=== PATIENT | female | born 1990 | race Two or more races ===

== ENCOUNTER 2020-06-10 09:35 | Outpatient (REF) | payer OTHER, SELFPAY ==
[2020-06-11 12:43] LABS: BV Int Neg Control Negative (Negative); BV Int Pos Control Positive (Positive)
[2020-06-11 19:17] LABS: C. trachomatis RNA TMA NOT DETECTED (NOT DETECTED); N. gonorrhoeae RNA TMA NOT DETECTED (NOT DETECTED)
[2020-07-15 12:19] LABS: Thin Prep Source Cervix
[2020-07-20 14:26] LABS: HPV mRNA E6/E7 Not Detected
== END 2020-06-10 09:36 | disposition home or self-care (01) ==
LOC: HO.LAB 09:35
PROVIDERS: Visit Provider Advanced Practice Midwife
DX: Z01.419 Encounter for gynecological examination (general) (routine) without abnormal findings (principal); R10.2 Pelvic and perineal pain
CPT/HCPCS: 36415; 81003; 87480; 87491; 87510; 87591; 87624; 87625; 87660; 88141; 88142

== ENCOUNTER → 2020-10-15 08:58 | Outpatient (BNVA) | payer OTHER, SELFPAY | PROVIDERS: Visit Provider Advanced Practice Midwife | DX: Z30.41 Encounter for surveillance of contraceptive pills (principal) | CPT/HCPCS: 99212 ==

== ENCOUNTER → 2021-04-27 09:25 | Outpatient (BNVA) | payer OTHER, SELFPAY | PROVIDERS: Visit Provider Advanced Practice Midwife ==

== ENCOUNTER → 2021-06-22 08:35 | Outpatient (BNVA) | payer OTHER, SELFPAY | PROVIDERS: Visit Provider Advanced Practice Midwife ==

== ENCOUNTER 2021-07-07 10:38 | Outpatient (REF) | payer OTHER, SELFPAY ==
[2021-07-07 17:01] LABS: CT PCR NOT DETECTED (Not Detect.); NG PCR NOT DETECTED (Not Detect.)
[2021-07-08 11:10] LABS: BV Int Neg Control Negative (Negative); BV Int Pos Control Positive (Positive)
[2021-07-09 09:51] LABS: HPV mRNA E6/E7 rflx Not Detected (Not Detected)
== END 2021-07-07 10:39 | disposition home or self-care (01) ==
LOC: HO.LAB 10:38
PROVIDERS: Visit Provider Advanced Practice Midwife
DX: Z01.411 Encounter for gynecological examination (general) (routine) with abnormal findings (principal); Z11.51 Encounter for screening for human papillomavirus (HPV); Z20.2 Contact with and (suspected) exposure to infections with a predominantly sexual mode of transmission; R10.2 Pelvic and perineal pain; Z98.891 History of uterine scar from previous surgery
CPT/HCPCS: 87480; 87491; 87510; 87591; 87624; 87660; 88142

== ENCOUNTER 2024-07-15 09:17 | Outpatient (AMB) | payer OTHER, SELFPAY ==
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
[2024-07-15 09:29] VITALS: BP 118/78; PULSE 84; O2SAT 98; BMI 40.2
--- OUTSIDE RECORDS SUMMARY | 2024-07-15 10:00 | XMS_ITS | Encounter Summary ---
Author Organization [facility] Address [address] [place] [address] Care Team Providers Care Catering Director Name Role Phone Raciel Lainez MD Primary Care Provider [phone] Reason for Visit * Reason Onset Date Comments Medication Problem 06/26/2024 Encounter Details Date Type Department Care Team (Late st Contact Info) Description 06/26/2024 Telephone Internal Medicine - [address] [phone] Raciel Lainez MD [address] [place] [phone] Medication Problem Social History Tobacco Use Types Packs/Day Years Used Date Smoking Tobacco: Never Smokeless Tobacco: Never Alcohol Use Standard Drinks/Week Comments No 0 (1 standard drink = 0.6 oz pur e alcohol) Estimated Date of Delivery Comme nts Yes 12/20/2024 Based on last me nstrual period of 03/15/2024 (Exact Date) Sex and Gender Information Value Date Recorded Sex Assigned at Female 05/06/2024 9:23 PM EST Legal Sex Female 2:17 AM EST Gender Identity Female 05/06/2024 9:23 PM EST Sexual Orientation Straight 05/06/2024 9: 23 PM EST documented as of this encounter Progress Notes * Lovely Ivey - 06/26/2024 1:22 PM EST Medication Problem: What is the name of the medication patient is having a problem with?: sodium chloride (OCEAN) 0.65 % nasal spray What is the problem?: pt states this med is not covered, requesting an alternative Who is calling about the problem? : The patient Who prescribed this medication for the patient? Ariadna De Oliveira Who is patients PCP?: Raciel Lainez MD [place] / Plan[place] / Product Type: *No Product type* / documented in this encounter Plan of Treatment Upcoming Encounters Date Type Department Care Team (Late st Contact Info) Description 07/16/2024 1:30 PM EST Office Visit Internal Medicine - [address] [phone] Ariadna Weaver, TRANSITION TEACHER [address] [place] [address] 08/08/2024 11:30 AM EDT Routine Obstetrics and Gynecology - [address] [phone] Maria G Bain [address] [address] 08/13/2024 10:00 AM EDT Ancillary Procedure Maternal Medicine [address] [phone] 09/05/2024 1:15 PM EDT [facility] [phone] [place] [address] [address] 10/03/2024 1:15 PM EDT Routine Obstetrics and Gynecology - [address] [phone] [place] [address] [address] documented as of this encounter Visit Diagnoses Not on filedocumented in this encounter Additional Health Concerns Infection Onset Date Last Indicated Resolved Time Respiratory Rule-Out 07/11/2024 07/11/2024 025 10:17 PM EST COVID-19 Rule-Out 07/11/2024 07/11/2024 07/11/2024 10:17 PM EST Influenza 07/11/2024 07/11/2024 documented as of this encounter Care Teams Catering Director Relationship Specialty Start Date End Date Raciel Lainez MD [address] [place] [phone] PCP - General Internal Medicine 04/22/24 documented as of this encounter
--- OUTSIDE RECORDS SUMMARY | 2024-07-15 10:00 | XMS_ITS | Encounter Summary ---
Author Organization [facility] Address [address] [place] [address] Care Team Providers Care Claim Administrator Name Role Phone Raciel Lainez MD Primary Care Provider [phone] Reason for Visit * Reason Onset Date Comments Prior Authorization 07/04/2024 Encounter Details Date Type Department Care Team (Late st Contact Info) Description 07/04/2024 [facility] [address] [place] [phone] Raciel Lainez MD [address] [place] [phone] Prior Authorization Social History Tobacco Use Types Packs/Day Years [...] encounter Progress Notes * Lovely Ivey - 07/04/2024 8:38 AM EST Prior Authorization for Medication-do not complete and send this encounter unless you have the fax from the pharmacy. Is this a Cover My Meds request: Yes -- Don Code [id number] Name of Medication ciprofloxacin-dexAMETHasone (CIPRODEX) otic suspension Dose of Medication What is the RX # from the faxed refill? How does patient take this med? Administer 4 drops into each ear 2 (two) times a day. What Pharmacy did the fax come from: [facility] fax #: : [phone] [employer] Information from fax: What Prescription Plan does the patient have? BIN/PCN if applicable: Cardholder ID: Person Code: Relationship Code: Help desk phone: documented in this encounter Plan of Treatment Upcoming Encounters Date Type Department Care Team (Late st Contact Info) Description 07/16/2024 1:30 PM EST Office Visit Internal Medicine - [address] [phone] Ariadna Weaver, WANDY [address] [place] [address] 08/08/2024 11:30 AM EDT Routine Obstetrics and Gynecology - [address] [phone] Maria G Bain[address] 08/13/2024 10:00 AM EDT Ancillary Procedure Maternal Medicine - [address] [phone] 09/05/2024 1:15 PM EDT Routine Obstetrics and Gynecology - [address] [phone] Soco Mayberry, [address] [address] 10/03/2024 1:15 PM EDT Routine Obstetrics and Gynecology - [address] [phone] Soco Mayberry CNM [address] [place] [address] documented as of this encounter Visit Diagnoses Not on filedocumented in this encounter Additional Health Concerns Infection Onset Date Last Indicated Resolved Time Respiratory Rule-Out 07/11/2024 07/11/2024 025 10:17 PM EST COVID-19 Rule-Out 07/11/2024 07/11/2024 07/11/2024 10:17 PM EST Influenza 07/11/2024 07/11/2024 documented as of this encounter Care Teams Claim Administrator Relationship Specialty Start Date End Date Raciel Lainez MD [address] [place] [phone] PCP - General Internal Medicine 04/22/24 documented as of this encounter
--- OUTSIDE RECORDS SUMMARY | 2024-07-15 10:00 | XMS_ITS | Encounter Summary ---
Author Organization [facility] Address [address] [place] [address] Care Team Providers Care Chopped Strand Operator Name Role Phone Raciel Lainez MD Primary Care Provider [phone] Reason for Referral * Consultation (Routine) - Pending Review Specialty Diagnoses / Procedures Referred By Kevin aguilar Referred To Contact Behavioral Health Diagnoses Adjustment disorder with mixed anxiety and depressed mood Ariadna Weaver NP [address] [place] [address] Phone: tel: fax: Referral ID Status Reason Start Date Expiration Date Visits Requested Visits Authorized [id number] Pending Review Specialty Services Required 06/27/2024 06/27/2025 1 1 * Consultation (Routine) - Pending Review Specialty Diagnoses / Procedures Referred By Kevin aguilar Referred To Contact Otolaryngology Diagnoses Pressure sensation in ear, bilateral Ariadna Weaver NP [address] [place] [address] Phone: tel: fax: [facility] [address] [place] [address] Phone: tel: fax: Referral ID Status Reason Start Date Expiration Date Visits Requested Visits Authorized [id number] Pending Review Specialty Services Required 06/27/2024 06/27/2025 1 1 Reason for Visit * Reason Comments Ear Problem F/u Encounter Details Date Type Department Care Team (Late st Contact Info) Description 06/27/2024 9:30 AM EST Office Visit Internal Medicine - [address] [phone] Ariadna Weaver NP [address] [place] [phone] Pressure sensation in ear, bilateral (Primary Dx); Adjustment disorder with mixed anxiety and depressed mood Social History Tobacco Use Types Packs/Day Years Used Date Smoking Tobacco: Never Smokeless Tobacco: Never Tobacco Cessation:Counseling Given: Not Answered Alcohol Use Standard Drinks/Week Comments No 0 [...] PM EST documented as of this encounter Last Filed Vital Signs Vital Sign Reading Time Taken Comments Blood Pressure 113/69 06/27/2024 9:19 AM EST Pulse 106 06/27/2024 9:19 AM EST Temperature 36.9 ??C (98.4 ??F) 06/27/2024 9:19 AM ES T Respiratory Rate - - Oxygen Saturation - - Inhaled Oxygen Concentration - - Weight 103 kg (228 lb 1.6 oz) 06/27/2024 9:19 AM EST Height - - Body Mass Index 40.41 06/05/2024 3:00 PM EST documented in this encounter Progress Notes * Ariadna De Oliveira NP - 06/27/2024 9:30 AM EST Referral to ENT due to chronic pressure feelings in the ears. Letter for work written today due to unstable emotional status and not therapeutic yet with new med. Patient to visit [facility] walk in clinic. Follow up during the week of 25. * Ariadna De Oliveira NP - 06/27/2024 9:30 AM EST CHIEF COMPLAINT: Ear Problem (F/u) HPI: Gaby Horta is a 33 y.o. old female with PMH of PCOS, anxiety with depression, eczema, seasonal allergies and a high hemoglobin A1c: prediabetes at 5.7. Patient is 15 weeks and is following up with CHANGE MANAGEMENT LEAD here at the clinic. Ms. Emmanuel is here today for follow-up from last visit on June 19, 2024 at which time she had come in for continuous complaints of right-sided ear pain, headaches and dizziness. Today the headache and the dizziness symptoms are gone. However the ear pain is now more of a pressure feeling in both ears. The patient states she can hear her own heart, and it feels like an ocean. The symptoms are increased on the right side but also present on the left side. Patient denies any ear drainage, swelling or redness inside or outside her ear, visible to her. The patient denies pain fevers and chills. Patient started Lexapro on June 23, due to insurance not having approve the medication prior to that, per patient reports. Patient does not note any difference in her symptoms as of this visit. But does not report any side effects during this visit from the medication. The patient continues with a lot of anxiety, feeling very depressed. Some of the symptoms that the patient is experiencing's are excessive worry, hyperalertness, tension, and increased fear. The fear patient feels is that she may lose her job. 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 Patient continues using her nasal spray consistently with improvement noted. Follow-up on patient's eczema problem today, patient states her eczema is much improved with the cream and she continues to moisturize after showers and as needed during the day. Patient reinforced to continue moisturizing during the day, for the dry skin to completely go away. ROS: See HPI for pertinent positives Constitutional: no weakness fever/ sweats, or weight change HEENT: no acute vision changes, no ear pain but feels pressure on both ears no, sore throat, no nasal discharge. Respiratory: no shortness of breath, cough or wheezing Cardiovascular: no chest pain or palpitations, no orthopnea or edema GI: no nausea, vomiting or diarrhea; no rectal bleeding or dark stools MSK: no joint or muscle pain, swelling or impaired ROM Neuro: no acute headaches, dizziness, weakness. PHYSICAL EXAM: Visit Vitals BP 113/69 (BP Location: Right arm, Patient Position: Sitting, BP Cuff Size: Large adult) Pulse 106 Temp 36.9 ??C (98.4 ??F) Wt 103 kg (228 lb 1.6 oz) LMP 03/15/2024 (Exact Date) BMI 40.41 kg/m?? OB Status Smoking Status Never BSA 2.04 m?? APPEARANCE: Alert and in no acute distress EYES: PERRLA, conjunctiva and sclera normal. EARS: External ears normal. Canals clear. TMs normal. No tenderness or pain with examination or palpation around the ears. NOSE/SINUS: Nares normal. Septum midline. Mucosa normal. MOUTH/THROAT: No erythema or exudates, uvula midline NECK: Neck supple, no adenopathy HEART: RRR with normal S1 and S2, no murmurs, no gallops LUNG: Clear to auscultation bilaterally. Able to talk in full complete sentences NEURO: Alert and oriented x 3. Gait steady. SKIN: Skin color, texture, turgor normal. Improved dry patches on the antecubital spaces. Psych: +Anxiety, depression, hypervigilant, constant worrying about work. PAST MEDICAL HISTORY: Patient Active Problem List Diagnosis Adjustment disorder with mixed anxiety and depressed mood Flexural eczema History of epilepsy Family history of brain aneurysm History of PCOS Encounter for supervision of other normal , first trimester Iron deficiency anemia secondary to inadequate dietary iron intake Environmental and seasonal allergies Prediabetes ACTIVE MEDICATIONS: Outpatient Medications Marked as Taking for the 06/27/24 encounter (Office Visit) with Ariadna De Oliveira NP Medication Sig Dispense Refill acetaminophen (Tylenol Extra Strength) 500 mg tablet Take 2 tablets (1,000 mg total) by mouth every6 (six) hours if needed for mild pain for up to 10 days. 30 tablet 0 betamethasone dipropionate 0.05 % lotion Apply topically 2 (two) times a day if needed for irritation or rash. 60 mL 0 cetirizine (ZyrTEC) 10 mg tablet Take 1 tablet (10 mg total) by mouth 1 (one) time each day. 30 each 2 escitalopram (LEXAPRO) 10 mg tablet Take 1 tablet (10 mg total) by mouth 1 (one) time each day. 30 each 5 fluticasone (VERAMYST) 27.5 mcg/actuation nasal spray Administer 2 sprays into each nostril 1 (one)time each day. 10 g 5 vit,gian [id number] 27 mg iron- 1 mg tablet Take 1 tablet by mouth 1 (one) time each day. 30 each 12 sodium chloride (OCEAN) 0.65 % nasal spray Administer 1 spray into each nostril if needed for congestion. 15 mL 11 ALLERGIES: Allergies Allergen Reactions Animal Dander Wheezing and Burning Eyes Cat, Dog, hampster Other Hives methylisohiazolinone Shellfish Derived Hives IMPRESSION: 1. Pressure sensation in ear, bilateral 2. Adjustment disorder with mixed anxiety and depressed mood PLAN: Ear pain and pressure: referral to ENT placed during today's visit due to chronic ear pressure feelings and ears normal upon examination. Mental health: new referral made for behavioral health services. Patient is having increased stress, and she is at this time. Advised on community services like [facility] walk-in clinic. Address given to patient during today's visit and advised to seek further help. Patient to go to the emergency room for increased anxiety as needed. Eczema: Continue use of topical steroid sparingly unless there is a flareup of the eczema again. Atthis time continue using topical nonmedicated creams often during the day to keep the skin layer hydrated. Follow-up : will see patient again in the week of July 11 to determine patient wellbeing and hopefully by then the Lexapro will start showing some improvement in the patient's mental health. Otherwise, referrals have been placed to mental health providers and hopefully the patient can get in soon. It is important the patient gets mental health and emotional relief by seeking appropriate care from mental health professionals. Work letter given today during visit. Discussed red flags that would warrant further evaluation. Patient verbalized understanding and is in agreement with plan. ORDERS: Orders Placed This Encounter Procedures Ambulatory referral to ENT Ambulatory referral to Behavioral Health There are no discontinued medications. AMB REFERRAL TO ENT AMB REFERRAL TO BEHAVIORAL HEALTH Ariadna De Oliveira NP on 06/27/2024 documented in this encounter Plan of Treatment Upcoming Encounters Date Type Department Care Team (Late st Contact Info) Description 07/16/2024 1:30 PM EST Office Visit Internal Medicine - [address] [phone] Ariadna Weaver NP [address] [place] [address] 08/08/2024 11:30 AM EDT Routine Obstetrics and Gynecology - [address] [phone] Maria G Bain [address] 08/13/2024 10:00 AM EDT Ancillary Procedure Maternal Medicine - [address] [phone] 09/05/2024 1:15 PM EDT [facility] [phone] [place] [address] [address] 10/03/2024 1:15 PM EDT [facility] [address] [phone] [place] [address] [address] Scheduled Referrals Name Type Priority Associated Diagnoses Order Schedule Ambulatory referral to ENT Outpatient Referral Routine Pressure sensation in ear, bilateral 1 Occurrences starting 06/27/2024 until 06/27/2025 Ambulatory referral to Behavioral Health Outpatient Referral Routine Adjustment disorder with mixed anxiety and depressed mood 1 Occurrences starting 06/27/2024 until 06/27/2025 documented as of this encounter Visit Diagnoses Diagnosis Pressure sensation in ear, bilateral- Primary Adjustment disorder with mixed anxiety and depressed mood documented in this encounter Care Teams Chopped Strand Operator Relationship Specialty Start Date End Date Raciel Lainez MD [address] [place] [phone] PCP - General Internal Medicine 04/22/24 documented as of this encounter
--- OUTSIDE RECORDS SUMMARY | 2024-07-15 10:01 | XMS_ITS | Encounter Summary ---
Author Organization [facility] Address [address] [place] [address] Care Team Providers Care Production Artist Name Role Phone Raciel Lainez MD Primary Care Provider [phone] Reason for Referral * Imaging (Routine) - Pending Review Specialty Diagnoses / Procedures Referred By Contac t Referred To Contact Radiology Diagnoses Chronic ear pain, bilateral Procedures CT Head wo Contrast Ariadna Weaver NP [address] [place] [address] Phone: tel: fax: [address] Phone: tel: Referral ID Status Reason Start Date Expiration Date V isits Requested Visits Authorized [id number] Pending Review 07/11/2024 07/11/2025 1 1 Reason for Visit * Reason Comments Follow-up Ear pain not getting better Encounter Details Date Type Department Care Team (Late st Contact Info) Description 07/11/2024 9:30 AM EST Office Visit Internal Medicine - [address] [phone] Ariadna Weaver NP [address] [place] [id number] Chronic ear pain, bilateral (Primary Dx); Viral upper respiratory tract infection Social History Tobacco Use Types Packs/Day Years [...] Sign Reading Time Taken Comments Blood Pressure 113/74 07/11/2024 9:37 AM EST Pulse 66 07/11/2024 9:37 AM EST Temperature - - Respiratory Rate - - Oxygen Saturation - - Inhaled Oxygen Concentration - - Weight 103 kg (226 lb) 07/11/2024 9:37 AM EST Height 160 cm (5' 3 ) 07/11/2024 9:37 AM EST Body Mass Index 40.03 07/11/2024 9:37 AM EST documented in this encounter Ordered Prescriptions Prescription Sig Dispense Quantity Refills Last Filled Start Date End Date pseudoephedrine (Sudafed 12 Hour) 120 mg 12 hr tabletIndications: Chronic ear pain, bilateral Take 1 tablet (120 mg total) by mouth every 12 (twelve) hours. Do not crush, chew, or split. 60 each 11 07/11/2024 07/11/2025 documented in this encounter Progress Notes * Ariadna De Oliveira NP - 07/11/2024 9:30 AM EST My chart message sent with test results to patient. * Ariadna De Oliveira NP - 07/11/2024 9:30 AM EST CHIEF COMPLAINT: Follow-up (Ear pain not getting better /) HPI: Gaby Horta is a 33 y.o. old female with PMH of of PCOS, anxiety with depression, eczema, seasonal allergies and a high hemoglobin A1c: prediabetes at 5.7. Patient is 20 weeks and is following up with [employer] here at the clinic. Patient is here today for chronic ear pain bilaterally, worst on the right side. Not responding to ciprofloxacin-dexamethasone. Patient's ear bilaterally without infection in last visits. Will recheck today. Patient also here for nasal congestion x 2 days. No fevers/chills, also having a cough with sputum clear. ROS: See HPI for pertinent positives Constitutional: no weakness fever/ sweats, or weight change HEENT: no acute vision changes, sore throat. + bilateral ear pain, nasal congestion with discharge. Respiratory: no shortness of breath, or wheezing but has a cough Cardiovascular: no chest pain or palpitations, no orthopnea or edema GI: no nausea, vomiting or diarrhea; no rectal bleeding or dark stools MSK: no joint or muscle pain, swelling or impaired ROM Neuro: no acute headaches, dizziness, weakness. PHYSICAL EXAM: Visit Vitals BP 113/74 Pulse 66 Ht 1.6 m (63 ) Wt 103 kg (226 lb) LMP 03/15/2024 (Exact Date) BMI 40.03 kg/m?? OB Status Smoking Status Never BSA 2.04 m?? APPEARANCE: Alert and in no acute distress. Is congested EYES: PERRLA, conjunctiva and sclera normal. EARS: External ears normal. Canals clear. TMs normal. NOSE/SINUS: Nares normal. Septum midline. Mucosa normal. MOUTH/THROAT: No erythema or exudates, uvula midline NECK: Neck supple, no adenopathy HEART: RRR with normal S1 and S2, no murmurs, no gallops LUNG: Clear to auscultation bilaterally. Able to talk in full complete sentences NEURO: Alert and oriented x 3. CN II-XII intact. Gait steady. SKIN: Skin color, texture, turgor normal PAST MEDICAL HISTORY: Patient Active Problem List Diagnosis Adjustment disorder with mixed anxiety and depressed mood Flexural eczema History of epilepsy Family history of brain aneurysm History of PCOS Encounter for supervision of other normal , first trimester Iron deficiency anemia secondary to inadequate dietary iron intake Environmental and seasonal allergies Prediabetes Chronic ear pain, bilateral Viral upper respiratory tract infection ACTIVE MEDICATIONS: Outpatient Medications Marked as Taking for the 07/11/24 encounter (Office Visit) with Ariadna De Oliveira NP Medication Sig Dispense Refill betamethasone dipropionate 0.05 % lotion Apply topically 2 (two) times a day if needed for irritation or rash. 60 mL 0 cetirizine (ZyrTEC) 10 mg tablet Take 1 tablet (10 mg total) by mouth 1 (one) time each day. 30 each 2 ciprofloxacin-dexAMETHasone (CIPRODEX) otic suspension Administer 4 drops into each ear 2 (two) times a day. 7.5 mL 1 escitalopram (LEXAPRO) 10 mg tablet Take 1 tablet (10 mg total) by mouth 1 (one) time each day. 30 each 5 fluticasone (VERAMYST) 27.5 mcg/actuation nasal spray Administer 2 sprays into each nostril 1 (one)time each day. 10 g 5 ibuprofen (ADVIL,MOTRIN) 800 mg tablet Take 1 tablet (800 mg total) by mouth 3 (three) times a day if needed for mild pain (pain). 180 tablet 3 vit,gian [id number] 27 mg iron- 1 mg tablet Take 1 tablet by mouth 1 (one) time each day. 30 each 12 sodium chloride (OCEAN) 0.65 % nasal spray Administer 1 spray into each nostril if needed for congestion. 15 mL 11 ALLERGIES: Allergies Allergen Reactions Animal Dander Wheezing and Burning Eyes Cat, Dog, hampster Other Hives methylisohiazolinone Shellfish Derived Hives IMPRESSION: 1. Chronic ear pain, bilateral 2. Viral upper respiratory tract infection PLAN: Chronic ear pain: CT scan ordered today to rule out etiology due to ear pain without ear infection.Not responsive to antibiotic and steroid ear drops. Patient is still waiting on ENT appointment. Patient advised to call other ENT offices for earlier appointment. If any earlier availability by patient, please send referral to ENT over to that office. Patient is to call and let office know. URI: most likely viral as her 6 and 11 year old children have been sick with same symptoms at home.Ordered swab to rule out RSV, flu, covid. Also ordered plain sudafed due to congestion. Patient is ready to go back to work. Letter completed for resume work on 07.30.24, pending patient health status. Patient is to follow up in 2 weeks after going back to work to evaluate her mental, emotional health and medication effectiveness. Discussed red flags that would warrant further evaluation. Plan of care reviewed with patient and patient verbalized understanding and is in agreement with plan. ORDERS: Orders Placed This Encounter Procedures [id number], RSV, Influenza A and B qualitative RT-PCR CT Head wo Contrast There are no discontinued medications. CT HEAD WO CONTRAST Ariadna De Oliveira NP on 07/11/2024 documented in this encounter Plan of Treatment Upcoming Encounters Date Type Department Care Team (Late st Contact Info) Description 07/16/2024 1:30 PM EST Office Visit Internal Medicine - [address] [phone] Ariadna Weaver NP [address] [place] [phone] 08/08/2024 11:30 AM EDT Routine Obstetrics and Gynecology - [address] [phone] Maria G Bain [address] [address] 08/13/2024 10:00 AM EDT Ancillary Procedure Maternal Medicine [address] [phone] 09/05/2024 1:15 PM EDT Routine Obstetrics and Gynecology - [address] [phone] [place] [address] [address] 10/03/2024 1:15 PM EDT Routine Obstetrics and Gynecology - [address] [phone] [place] [address] [address] Scheduled Orders Name Type Priority Associated Diagnoses Orde r Schedule CT Head wo Contrast Imaging Today Chronic ear pain, bilateral Expected: 07/11/2024, Expires: 07/11/2025 documented as of this encounter Procedures Procedure Name Priority Date/Time Associated Diagnosis Comments [id number], RSV, FLU A AND B QUALITATIVE RT-PCR, LOCAL REFERENCE LAB Routine 07/11/2024 10:24 AM EST Viral upper respiratory tract infection documented in this encounter Results * (ABNORMAL) [id number], RSV, Influenza A and B qualitative RT-PCR (07/11/2024 10:24 AM EST) SARS COV-2 Not Detected Not Detected LAB MOLECULAR DIAGNOSTICS METHOD 07/11/2024 10:17 PM EST [facility] Influenza A PCR Not Detected Not Detected LAB MOLECULAR DIAGNOSTICS METHOD 07/11/2024 10:17 PM EST [facility] Influenza B PCR Detected(A) Not Detected LAB MOLECULAR DIAGNOSTICS METHOD 07/11/2024 10:17 PM EST [facility] RSV PCR Not Detected Not Detected LAB MOLECULAR DIAGNOSTICS METHOD 07/11/2024 10:17 PM [facility] Swab Nasopharyngeal structure / Unknown Non-blood Collection / Unknown 07/11/2024 10:24 AM EST 07/11/2024 10:25 AM EST us Ariadna De Oliveira NP LAB MICROBIOLOGY - GENERAL O RDERABLES Final Result [facility] [address] [place] [address], documented in this encounter Visit Diagnoses Diagnosis Chronic ear pain, bilateral- Primary Viral upper respiratory tract infection Acute upper respiratory infections of unspecified site documented in this encounter Additional Health Concerns Infection Onset Date Last Indicated Resolved Time Respiratory Rule-Out 07/11/2024 07/11/2024 025 10:17 PM EST COVID-19 Rule-Out 07/11/2024 07/11/2024 07/11/2024 10:17 PM EST documented as of this encounter Care Teams Production Artist Relationship Specialty Start Date End Date Raciel Lainez MD [address] [place] [address] PCP - General Internal Medicine 04/22/24 documented as of this encounter
--- OUTSIDE RECORDS SUMMARY | 2024-07-15 10:01 | XMS_ITS | Encounter Summary ---
Author Organization [facility] Address [address] [place] [address] Care Team Providers Care Child Therapist Name Role Phone Raciel Lainez MD Primary Care Provider [phone] Reason for Visit * Imaging (Routine) - Pending Review Specialty Diagnoses / Procedures Referred By Contac t Referred To Contact Radiology Diagnoses Encounter for supervision of other normal , first trimester Procedures US OB Less 14 Wks Nuchal Measurement Soco Mayberry, CNM [address] [place] [address] Phone: tel: fax: [address] Phone: tel: Referral ID Status Reason Start Date Expiration Date V isits Requested Visits Authorized [id number] Pending Review 06/05/2024 06/05/2025 1 1 Encounter Details Date Type Department Care Team (Latest Contact Info) Description 06/17/2024 1:00 PM EST Ancillary Procedure Maternal Medicine - [address] [phone] Encounter for supervision of other normal , first trimester Social History Tobacco Use Types Packs/Day Years [...] PM EST documented as of this encounter Plan of Treatment Upcoming Encounters Date Type Department Care Team (Late st Contact Info) Description 07/16/2024 1:30 PM EST Office Visit Internal Medicine - [address] [phone] Ariadna Weaver, W[place]Y [address] [place] [address] 08/08/2024 11:30 AM EDT Routine Obstetrics and Gynecology - [address] [phone] Maria G Bain [address] [address] 08/13/2024 10:00 AM EDT Ancillary Procedure Maternal Medicine - [address] [phone] 09/05/2024 1:15 PM EDT Routine Obstetrics and Gynecology - [address] [phone] Soco Mayberry [address] [address] 10/03/2024 1:15 PM EDT Routine Obstetrics and Gynecology - [address] [phone] Soco Mayberry [address] [address] documented as of this encounter Procedures Procedure Name Priority Date/Time Associated Diagnosis Comments US OB LESS 14 WKS NUCHAL MEASUREMENT Routine 06/17/2024 1:29 PM EST Encounter for supervision of other normal , first trimester US OB LESS 14 WKS SINGLE OR FIRST GESTATION Routine 06/17/2024 1:29 PM EST Encounter for supervision of other normal , first trimester documented in this encounter Results * US OB Less 14 Wks Single or First Gestation (06/17/2024 1:29 PM EST) Anatomical Region Laterality Modality Body Ultrasound 06/17/2024 1:03 PM EST Narrative 06/18/2024 4:38 PM EST OBSTETRICS REPORT ?(Signed Final 06/18/2024 04:38 pm) PATIENT INFO: ID #: ? [id number] ? : ??[birth year] (33 yrs)(F) Name: ? KELLIE STEWART ?Visit Date: 06/17/2024 01:03 pm PERFORMED BY: Attending: ?Clara Shelton MD Performed By: ? Parag Muñoz RDMS Referred By: ?Soco Mayberry CNM Ref. Address: ? [address] ? [place], [place] Location: ? [facility] SERVICE(S) PROVIDED: US Nuchal Translucency ?65366 US < 14 weeks Abdominal Ultrasound ?13920 INDICATIONS: Advanced Maternal Age in multigravida, first ?? O09.521 trimester Obesity complicating , 1st ?O99.211 trimester Morbid obesity ? E66.01 Encounter for screening for nuchal ?? Z36.82 translucency Encounter for screening for ?Z36.3 malformations 13 weeks gestation of ?Z3A.13 TECHNIQUE/SCAN QUALITY: Technique: ?? Transabdominal Scan ? Satisfactory Quality: OB HISTORY: : ?3 ? Term: ?? 2 Living: ? 2 VITAL SIGNS: Weight (lb) ?? Height ?BMI 234 ? 5'3 ?41.45 EVALUATION: Number Of Fetuses: ? 1 Preg. Location: ?Intrauterine Heart Rate(bpm): ?? 152 Cardiac Activity: ?Observed Presentation: ?Variable Placenta Location: ?Anterior Appearance: ?Grade 0 Cord Insertion: ?Visualized BIOMETRY: GESTATIONAL AGE: LMP: ? 13w 3d ?Date: ??03/15/24 ? PEEWEE: ?? 12/20/24 Best: ?13w 3d ?? Det. By: ??LMP ??(03/15/24) ?PEEWEE: ?? 12/20/24 1ST TRIMESTER GENETIC SONOGRAM SCREENING: CRL: ? 72.24 ??mm ? G.Age: ?? 13w 3d ? PEEWEE: ?? 12/20/24 Nuc Trans: ? 1.7 ??mm Nasal Bone: ? Suboptimal views STANDARD ANATOMY: Cranium: ?Normal appearance Choroid Plexus: ? Normal appearance Stomach: ?Normal appearance Abdominal Wall: ? Normal appearance Cord Vessels: ? Normal 3-Vessel Cord Bladder: ?Normal appearance Upper Extremities: ?Seen Lower Extremities: ?Seen CERVIX UTERUS ADNEXA: Uterus Size(cm) ?12.01 ?? x ??11.71 ?? x ??8.5 Uterus Vol(ml): ?625.92 Anteverted, anteflexed. Myometrium homogeneous, no lesions identified. Right Ovary Size(cm) ? 3.25 ?? x ?? 3.15 ?? x ??2.41 ?Vol(ml): 12.92 Normal in size and appearance. It is found between the uterus and the pelvic sidewall. Left Ovary Size(cm) ? 3.96 ?? x ?? 2.73 ?? x ??2.33 ?Vol(ml): 13.19 Normal in size and appearance. It is found between the uterus and the pelvic sidewall. Cul De Sac There is no free fluid in the cul de sac. Adnexa Both adnexae appear unremarkable. COMMENTS: Ms. Stewart is being seen for first trimester screening for aneuploidy. - Her medical history is significant for class III obesity, anxiety and depression, and epilepsy on no medication. Her obstetrical history is significant for two term deliveries. - Cell free DNA testing was obtained in this . ??Results were low-risk for all conditions assessed. - Ultrasound findings: The nuchal translucency measurement is < 95th% for the gestational age. - biometry is consistent with dates. ??Assessment of the anatomy is appropriate for the gestational age. There are no ultrasound findings to suggest aneuploidy. - Plan: 1. A detailed ultrasound (AMA, BMI >40) and cervical length screening for risk of have been scheduled. - 2. The patient should be offered second trimester MSAFP only, to assess for risk of an open neural tube defect. Clara Shelton MD Electronically Signed Final Report ?? 06/18/2024 04:38 pm Procedure Note Clara Shelton MD - 06/18/2024 OBSTETRICS REPORT (Signed Final 06/18/2024 04:38 pm) PATIENT INFO: ID #: [id number] : [birth year] (33 yrs)(F) Name: KELLIE STEWART Visit Date: 06/17/2024 01:03 pm PERFORMED BY: Attending: Clara Shelton MD Performed By: Parag Muñoz RDMS Referred By: Soco PUGA Ref. Address: [address] [place] [address] Location: [facility] SERVICE(S) PROVIDED: US Nuchal Translucency 08358 US < 14 weeks Abdominal Ultrasound 78215 INDICATIONS: Advanced Maternal Age in multigravida, first O09.521 trimester Obesity complicating , 1st O99.211 trimester Morbid obesity E66.01 Encounter for screening for nuchal Z36.82 translucency Encounter for screening for Z36.3 malformations 13 weeks gestation of Z3A.13 TECHNIQUE/SCAN QUALITY: Technique: Transabdominal Scan Satisfactory Quality: OB HISTORY: : 3 Term: 2 Livin VITAL SIGNS: Weight (lb) Height BMI 234 5'3 41.45 EVALUATION: Number Of Fetuses: 1 Preg. Location: Intrauterine Heart Rate(bpm): 152 Cardiac Activity: Observed Presentation: Variable Placenta Location: Anterior Appearance: Grade 0 Cord Insertion: Visualized BIOMETRY: GESTATIONAL AGE: LMP: 13w 3d Date: 03/15/24 PEEWEE: 12/20/24 Best: 13w 3d Det. By: LMP (03/15/24) PEEWEE: 12/20/24 1ST TRIMESTER GENETIC SONOGRAM SCREENING: CRL: 72.24 mm G.Age: 13w 3d PEEWEE: 12/20/24 Nuc Trans: 1.7 mm Nasal Bone: Suboptimal views STANDARD ANATOMY: Cranium: Normal appearance Choroid Plexus: Normal appearance Stomach: Normal appearance Abdominal Wall: Normal appearance Cord Vessels: Normal 3-Vessel Cord Bladder: Normal appearance Upper Extremities: Seen Lower Extremities: Seen CERVIX UTERUS ADNEXA: Uterus Size(cm) 12.01 x 11.71 x 8.5 Uterus Vol(ml): 625.92 Anteverted, anteflexed. Myometrium homogeneous, no lesions identified. Right Ovary Size(cm) 3.25 x 3.15 x 2.41 Vol(ml): 12.92 Normal in size and appearance. It is found between the uterus and the pelvic sidewall. Left Ovary Size(cm) 3.96 x 2.73 x 2.33 Vol(ml): 13.19 Normal in size and appearance. It is found between the uterus and the pelvic sidewall. Cul De Sac There is no free fluid in the cul de sac. Adnexa Both adnexae appear unremarkable. COMMENTS: Ms. Stewart is being seen for first trimester screening for aneuploidy. - Her medical history is significant for class III obesity, anxiety and depression, and epilepsy on no medication. Her obstetrical history is significant for two term deliveries. - Cell free DNA testing was obtained in this . Results were low-risk for all conditions assessed. - Ultrasound findings: The nuchal translucency measurement is < 95th% for the gestational age. - biometry is consistent with dates. Assessment of the anatomy is appropriate for the gestational age. There are no ultrasound findings to suggest aneuploidy. - Plan: 1. A detailed ultrasound (AMA, BMI >40) and cervical length screening for risk of have been scheduled. - 2. The patient should be offered second trimester MSAFP only, to assess for risk of an open neural tube defect. Clara Shelton MD Electronically Signed Final Report 06/18/2024 04:38 pm us Soco Mayberry CNM IMG OB US PROCEDURES Final R esult * US OB Less 14 Wks Nuchal Measurement (06/17/2024 1:29 PM EST) Anatomical Region Laterality Modality Body Ultrasound 06/17/2024 1:03 PM EST Narrative 06/18/2024 4:38 PM EST OBSTETRICS REPORT ?(Signed Final 06/18/2024 04:38 pm) PATIENT INFO: ID #: ? [id number] ? : ??[birth year] (33 yrs)(F) Name: ? KELLIE STEWART ?Visit Date: 06/17/2024 01:03 pm PERFORMED BY: Attending: ?Clara Shelton MD Performed By: ? Parag Muñoz RDMS Referred By: ?Soco Mayberry CNM Ref. Address: ? [address] ? [place] Location: ? [facility] SERVICE(S) PROVIDED: US Nuchal Translucency ?93018 US < 14 weeks Abdominal Ultrasound ?64946 INDICATIONS: Advanced Maternal Age in multigravida, first ?? O09.521 trimester Obesity complicating , 1st ?O99.211 trimester Morbid obesity ? E66.01 Encounter for screening for nuchal ?? Z36.82 translucency Encounter for screening for ?Z36.3 malformations 13 weeks gestation of ?Z3A.13 TECHNIQUE/SCAN QUALITY: Technique: ?? Transabdominal Scan ? Satisfactory Quality: OB HISTORY: : ?3 ? Term: ?? 2 Living: ? 2 VITAL SIGNS: Weight (lb) ?? Height ?BMI 234 ? 5'3 ?41.45 EVALUATION: Number Of Fetuses: ? 1 Preg. Location: ?Intrauterine Heart Rate(bpm): ?? 152 Cardiac Activity: ?Observed Presentation: ?Variable Placenta Location: ?Anterior Appearance: ?Grade 0 Cord Insertion: ?Visualized BIOMETRY: GESTATIONAL AGE: LMP: ? 13w 3d ?Date: ??03/15/24 ? PEEWEE: ?? 12/20/24 Best: ?13w 3d ?? Det. By: ??LMP ??(03/15/24) ?PEEWEE: ?? 12/20/24 1ST TRIMESTER GENETIC SONOGRAM SCREENING: CRL: ? 72.24 ??mm ? G.Age: ?? 13w 3d ? PEEWEE: ?? 12/20/24 Nuc Trans: ? 1.7 ??mm Nasal Bone: ? Suboptimal views STANDARD ANATOMY: Cranium: ?Normal appearance Choroid Plexus: ? Normal appearance Stomach: ?Normal appearance Abdominal Wall: ? Normal appearance Cord Vessels: ? Normal 3-Vessel Cord Bladder: ?Normal appearance Upper Extremities: ?Seen Lower Extremities: ?Seen CERVIX UTERUS ADNEXA: Uterus Size(cm) ?12.01 ?? x ??11.71 ?? x ??8.5 Uterus Vol(ml): ?625.92 Anteverted, anteflexed. Myometrium homogeneous, no lesions identified. Right Ovary Size(cm) ? 3.25 ?? x ?? 3.15 ?? x ??2.41 ?Vol(ml): 12.92 Normal in size and appearance. It is found between the uterus and the pelvic sidewall. Left Ovary Size(cm) ? 3.96 ?? x ?? 2.73 ?? x ??2.33 ?Vol(ml): 13.19 Normal in size and appearance. It is found between the uterus and the pelvic sidewall. Cul De Sac There is no free fluid in the cul de sac. Adnexa Both adnexae appear unremarkable. COMMENTS: Ms. Stewart is being seen for first trimester screening for aneuploidy. - Her medical history is significant for class III obesity, anxiety and depression, and epilepsy on no medication. Her obstetrical history is significant for two term deliveries. - Cell free DNA testing was obtained in this . ??Results were low-risk for all conditions assessed. - Ultrasound findings: The nuchal translucency measurement is < 95th% for the gestational age. - biometry is consistent with dates. ??Assessment of the anatomy is appropriate for the gestational age. There are no ultrasound findings to suggest aneuploidy. - Plan: 1. A detailed ultrasound (AMA, BMI >40) and cervical length screening for risk of have been scheduled. - 2. The patient should be offered second trimester MSAFP only, to assess for risk of an open neural tube defect. Clara Shelton MD Electronically Signed Final Report ?? 06/18/2024 04:38 pm Procedure Note Clara Shelton MD - 06/18/2024 OBSTETRICS REPORT (Signed Final 06/18/2024 04:38 pm) PATIENT INFO: ID #: [id number] : [birth year] (33 yrs)(F) Name: KELLIE STEWART Visit Date: 06/17/2024 01:03 pm PERFORMED BY: Attending: Clara Shelton MD Performed By: Parag Muñoz [facility] Referred By: Soco Mayberry [facility] Ref. Address: [address] [place] [address] Location: [facility] SERVICE(S) PROVIDED: US Nuchal Translucency 66026 US < 14 weeks Abdominal Ultrasound 72687 INDICATIONS: Advanced Maternal Age in multigravida, first O09.521 trimester Obesity complicating , 1st O99.211 trimester Morbid obesity E66.01 Encounter for screening for nuchal Z36.82 translucency Encounter for screening for Z36.3 malformations 13 weeks gestation of Z3A.13 TECHNIQUE/SCAN QUALITY: Technique: Transabdominal Scan Satisfactory Quality: OB HISTORY: : 3 Term: 2 Livin VITAL SIGNS: Weight (lb) Height BMI 234 5'3 41.45 EVALUATION: Number Of Fetuses: 1 Preg. Location: Intrauterine Heart Rate(bpm): 152 Cardiac Activity: Observed Presentation: Variable Placenta Location: Anterior Appearance: Grade 0 Cord Insertion: Visualized BIOMETRY: GESTATIONAL AGE: LMP: 13w 3d Date: 03/15/24 PEEWEE: 12/20/24 Best: 13w 3d Det. By: LMP (03/15/24) PEEWEE: 12/20/24 1ST TRIMESTER GENETIC SONOGRAM SCREENING: CRL: 72.24 mm G.Age: 13w 3d PEEWEE: 12/20/24 Nuc Trans: 1.7 mm Nasal Bone: Suboptimal views STANDARD ANATOMY: Cranium: Normal appearance Choroid Plexus: Normal appearance Stomach: Normal appearance Abdominal Wall: Normal appearance Cord Vessels: Normal 3-Vessel Cord Bladder: Normal appearance Upper Extremities: Seen Lower Extremities: Seen CERVIX UTERUS ADNEXA: Uterus Size(cm) 12.01 x 11.71 x 8.5 Uterus Vol(ml): 625.92 Anteverted, anteflexed. Myometrium homogeneous, no lesions identified. Right Ovary Size(cm) 3.25 x 3.15 x 2.41 Vol(ml): 12.92 Normal in size and appearance. It is found between the uterus and the pelvic sidewall. Left Ovary Size(cm) 3.96 x 2.73 x 2.33 Vol(ml): 13.19 Normal in size and appearance. It is found between the uterus and the pelvic sidewall. Cul De Sac There is no free fluid in the cul de sac. Adnexa Both adnexae appear unremarkable. COMMENTS: Ms. Stewart is being seen for first trimester screening for aneuploidy. - Her medical history is significant for class III obesity, anxiety and depression, and epilepsy on no medication. Her obstetrical history is significant for two term deliveries. - Cell free DNA testing was obtained in this . Results were low-risk for all conditions assessed. - Ultrasound findings: The nuchal translucency measurement is < 95th% for the gestational age. - biometry is consistent with dates. Assessment of the anatomy is appropriate for the gestational age. There are no ultrasound findings to suggest aneuploidy. - Plan: 1. A detailed ultrasound (AMA, BMI >40) and cervical length screening for risk of have been scheduled. - 2. The patient should be offered second trimester MSAFP only, to assess for risk of an open neural tube defect. Clara Shelton MD Electronically Signed Final Report 06/18/2024 04:38 pm us Soco Mayberry CNM IMG OB US PROCEDURES Final R esult documented in this encounter Visit Diagnoses Diagnosis Encounter for supervision of other normal , first trimester documented in this encounter Care Teams Child Therapist Relationship Specialty Start Date End Date Raciel Lainez MD [address] [place] [address] PCP - General Internal Medicine 04/22/24 documented as of this encounter
--- OUTSIDE RECORDS SUMMARY | 2024-07-15 10:01 | XMS_ITS | Encounter Summary ---
Author Organization [facility] Address [address] [place] [address] Care Team Providers Care Bookkeeping Assistant Name Role Phone Raciel Lainez MD Primary Care Provider [phone] Reason for Visit * Reason Comments URI R sided Ear pain, di zziness x4 days Encounter Details Date Type Department Care Team (Late st Contact Info) Description 06/19/2024 10:30 AM EST Office Visit Walk-In Clinic [facility] [address] [place] [phone] Galileo Santoyo NP [address] [place] [address] Excessive cerumen in both ear canals (Primary Dx); Upper respiratory tract infection, unspecified type Social History Tobacco Use Types Packs/Day Years [...] Sign Reading Time Taken Comments Blood Pressure 120/72 06/19/2024 10:34 AM EST Pulse 100 06/19/2024 10:34 AM EST Temperature 36.8 ??C (98.2 ??F) 06/19/2024 10:[address] Respiratory Rate - - Oxygen Saturation 99% 06/19/2024 10:34 AM EST Inhaled Oxygen Concentration - - Weight - - Height - - Body Mass Index - - documented in this encounter Progress Notes * Galileo Sanotyo NP - 06/19/2024 10:30 AM ESTAddended by: GALILEO SANTOYO on: 06/19/2024 11:14 AM Modules accepted: Orders * Doreen Trinidad MA - 06/19/2024 10:30 AM EST Performed b/l ear lavage per Saturnino Santoyo. * Galileo Santoyo NP - 06/19/2024 10:30 AM EST CHIEF COMPLAINT: URI (R sided Ear pain, dizziness x4 days) HPI: Gaby Horta is a 33 y.o. old female who presents with ear pain, headache and URI symptoms x 1 week.Patient denies any fever chills nausea vomiting or diarrhea. Patient is 14 weeks ROS: Remainder of the 12 point review of symptoms unremarkable except for those idenitified in the HPI. PAST MEDICAL HISTORY: Patient Active Problem List Diagnosis Date Noted Encounter for supervision of other normal , first trimester 06/05/2024 Iron deficiency anemia secondary to inadequate dietary iron intake 06/05/2024 History of PCOS 05/05/2024 History of epilepsy Family history of brain aneurysm Flexural eczema 09/01/2022 Adjustment disorder with mixed anxiety and depressed mood 03/19/2017 Past Surgical History: Procedure Laterality Date SECTION 12/11/2012, 03/29/2018 PROCEDURE: HISTORICAL OTHER SURGICAL HISTORY Right 2017 PROCEDURE: HISTORICAL EAR SURGERY; COMMENT: Keloid removal- Dr Simental SOCIAL HISTORY: Social History Tobacco Use Smoking status: Never Smokeless tobacco: Never Substance Use Topics Alcohol use: No FAMILY HISTORY: Family History Problem Relation Name Age of Onset Diabetes Mother brain aneurysm ([facility]), HTN, depression Other (Other: Hysterectomy) Mother Painful menstural Brain Aneurysm Mother with stroke Hypertension Mother Stroke Mother 2019 Depression Mother Uterine cancer Mother 2018 Restless legs syndrome Mother Diabetes Father HTN, JERED, ETOH Hyperlipidemia Father Sleep apnea Father Neuropathy Father Restless legs syndrome Father Obesity Sister HTN, Drug abuse, PCOS Alcohol abuse Sister No Known Problems Sister Keloids Daughter Asthma Son Eczema Son Depression Maternal Grandmother CHF, CVA, Diabetes No Known Problems Maternal Grandfather Unknown Health hx Breast cancer Paternal Grandmother 53 No Known Problems Paternal Grandfather Unknown Health hx Family Status Relation Name Status Mother Alive Father Alive Sister Alive Sister Alive Daughter Alive Son Alive MGM MGF (Not Specified) PGM Alive PGF (Not Specified) No partnership data on file MEDICATIONS DISCONTINUED/REORDERED: There are no discontinued medications. ACTIVE MEDICATIONS: No outpatient medications have been marked as taking for the 06/19/24 encounter (Office Visit) with Galileo Santoyo NP. ALLERGIES: Allergies Allergen Reactions Animal Dander Wheezing and Burning Eyes Cat, Dog, hampster Other Hives methylisohiazolinone Shellfish Derived Hives PHYSICAL EXAM: Vitals: 06/19/24 1034 BP: 120/72 Pulse: 100 Temp: 36.8 ??C (98.2 ??F) SpO2: 99% CONSTITUTIONAL: alert, calm, cooperative, in no acute distress HEAD: normocephalic, atraumatic EYES: pupils equal, round, reactive to direct and consensual light, accommodation reflex present, extraocular movement intact (EOMI), sclera non-icteric EARS: auditory canal right cerumen impaction left small amount of cerumen visualized TM within normal limits NOSE: septum intact, no lesions, no discharge ORAL CAVITY: mucosa moist, gums normal, palate normal, tongue midline THROAT: no erythema, no exudate, pharynx normal, tonsils normal, uvula midline NECK/THYROID: neck range of motion grossly intact LYMPH: no cervical or supraclavicular lymphadenopathy SKIN: warm and dry HEART: S1, S2 normal, regular rate and rhythm, no murmurs, rubs, gallops LUNGS: clear to auscultation bilaterally, no wheezes, rales, rhonchi PSYCH: mood/affect full range, speech clear, good eye contact, cooperative with exam LABS/IMAGING: COVID: Negative IMPRESSION: Ceruminosis PLAN: The patient's PMH, problem list and medications were reviewed in reference to the above diagnosis/diagnoses. Procedures Patient verbally consents to ear lavage in office today after discussing risks and benefits. A mixture of warm water and hydrogen peroxide is used to irrigate the both ear with a combination of syringe and the elephant ear system with excellent results. Following the procedure repeat otoscopy was performed TMs within normal limits mouth clear Advised to follow up with PCP if symptoms do not improve. Advised to follow up with UC or PCP immediately for new or worsening symptoms. Educated on red flags symptoms. Advised to go to the ER or call 911 for these symptoms. Patient understands the plan. Patient verbalizes agreement with the plan. No orders of the defined types were placed in this encounter. Galileo Santoyo NP on 06/19/2024 at 10:37 AM EST Today's documentation was made using voice recognition software. This note may contain grammatical errors secondary to this software. documented in this encounter Plan of Treatment Upcoming Encounters Date Type Department Care Team (Late st Contact Info) Description 07/16/2024 1:30 PM EST Office Visit Internal Medicine - [address] [phone] Ariadna Weaver, WANDY [address] [place] [phone] 08/08/2024 11:30 AM EDT Routine Obstetrics and Gynecology - [address] [phone] Maria G Bain CNM [address] [place] [address] 08/13/2024 10:00 AM EDT Ancillary Procedure Maternal Medicine - [address] [phone] 09/05/2024 1:15 PM EDT [facility] [phone] Soco Mayberry, [address] [address] 10/03/2024 1:15 PM EDT Routine Obstetrics and Gynecology - [address] [phone] Soco Mayberry, [address] documented as of this encounter Procedures Procedure Name Priority Date/Time Associated Diagnosis Comments POC RAPID [id number], MOLECULAR Routine 06/19/2024 1:22 PM EST Upper respiratory tract infection, unspecified type documented in this encounter Results * Poc Rapid [id number], MOLECULAR (06/19/2024 1:22 PM EST) COVID-19/SARS- COV-2 Rapid POC Negative Negative Internal Control Pass Yes Yes Swab Nasopharyngeal structure / Unknown 06/19/2024 1:22 PM EST Galileo [facility] POINT OF CARE TEST ENTER/EDIT ORDERABLES Final Result documented in this encounter Visit Diagnoses Diagnosis Excessive cerumen in both ear canals- Primary Upper respiratory tract infection, unspecified type documented in this encounter Care Teams Bookkeeping Assistant Relationship Specialty Start Date End Date Raciel Lainez MD [address] [place] [address] PCP - General Internal Medicine 04/22/24 documented as of this encounter
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
--- OUTSIDE RECORDS SUMMARY | 2024-07-15 10:01 | XMS_ITS | Encounter Summary ---
Author Organization [facility] Address [address] [place] [address] Care Team Providers Care Telephone Order Dispatcher Name Role Phone Raciel Lainez MD Primary Care Provider [phone] Reason for Visit * Reason Comments Routine Visit Encounter Details Date Type Department Care Team (Late st Contact Info) Description 07/11/2024 10:15 AM EST Routine Obstetrics and Gynecology - [address] [phone] [place], [address] [phone] 16 weeks gestation of (Primary Dx); Viral upper respiratory tract infection; Encounter for supervision of other normal , second trimester Social History Tobacco Use Types Packs/Day [...] Time Taken Comments Blood Pressure 113/74 07/11/2024 10:09 AM EST Pulse - - Temperature - - Respiratory Rate - - Oxygen Saturation - - Inhaled Oxygen Concentration - - Weight 103 kg (226 lb) 07/11/2024 10:09 AM EST Height - - Body Mass Index 40.03 07/11/2024 9:37 AM EST documented in this encounter Progress Notes * [place]o [place]berry CNM - 07/11/2024 10:15 AM EST Subjective Chief Complaint Patient presents with Routine Visit Gaby Horta is a 33 y.o. at 16w6d with a working estimated date of delivery of 12/20/2024, by Last Menstrual Period who presents for a routine visit. She denies vaginal bleeding, leakage of fluid, decreased movements, or contractions. Has had URI symptoms for the past 2 days, just got tested but does not have results yet. Reviewed care for respiratory symptoms. Review of Systems The following portions of the patient's chart were reviewed in this encounter and updated as appropriate: Allergies Meds Objective Physical Exam Weight: 103 kg (226 lb) Expected Total Weight Gain: 5 kg (11 lb)-9 kg (19 lb) Pregravid BMI: 40.75 BP: 113/74 Heart Rate: 150 Fundal Height (cm): 17 cm OBGyn Exam Labs Hemoglobin Date Value Ref Range Status 06/06/2024 10.6 (L) 11.5 - 16.0 g/dL Final Hematocrit Date Value Ref Range Status 06/06/2024 35.7 35.0 - 47.0 % Final ABO Group Date Value Ref Range Status 06/06/2024 O Final Rh Type Date Value Ref Range Status 06/06/2024 Positive Final Hepatitis B Surface Ag Date Value Ref Range Status 06/06/2024 Negative Negative Final Assessment/Plan 16 weeks gestation of (Primary) Viral upper respiratory tract infection Encounter for supervision of other normal , second trimester documented in this encounter Plan of Treatment Upcoming Encounters Date Type Department Care Team (Late st Contact Info) Description 07/16/2024 1:30 PM EST Office Visit Internal Medicine - [address] [phone] Ariadna Weaver, CASTING COORDINATOR [address] [place] [phone] 08/08/2024 11:30 AM EDT Routine Obstetrics and Gynecology - [address] [phone] Maria G Bain, [address] [address] 08/13/2024 10:00 AM EDT Ancillary Procedure Maternal Medicine - [address] [phone] 09/05/2024 1:15 PM EDT Routine Obstetrics and Gynecology - [address] [phone] [place], [address] [address] 10/03/2024 1:15 PM EDT Routine Obstetrics and Gynecology - [address] [phone] [place], [address] [address] documented as of this encounter Visit Diagnoses Diagnosis 16 weeks gestation of - Primary Viral upper respiratory tract infection Acute upper respiratory infections of unspecified site Encounter for supervision of other normal , second trimester documented in this encounter Additional Health Concerns Infection Onset Date Last Indicated Resolved Time Respiratory Rule-Out 07/11/2024 07/11/2024 025 10:17 PM EST COVID-19 Rule-Out 07/11/2024 07/11/2024 07/11/2024 10:17 PM EST documented as of this encounter Care Teams Telephone Order Dispatcher Relationship Specialty Start Date End Date Raciel Lainez MD [address] [place] [id number] PCP - General Internal Medicine 04/22/24 documented as of this encounter
--- OUTSIDE RECORDS SUMMARY | 2024-07-15 10:01 | XMS_ITS | Clinical Summary ---
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 care. Visible to patient: Yes (not seen) Next appt: 05/27/2024 at 02:30 PM in Orthopaedic Surgery (Jayden Thompson DPM) Dx: Encounter for supervision of other no... 0 Result Notes Component Ref Range & Units 04/23/24 1624 HCG, Ur POC Negative Positive Abnormal POC hCG Int QC Pass? Yes Yes Last Filed Vital Signs Vital Sign Reading Time Taken Comments Blood Pressure 113/74 07/11/2024 10:09 AM EST Pulse 66 07/11/2024 9:37 AM EST Temperature 36.9 ??C (98.4 ??F) 06/27/2024 9:19 AM ES T Respiratory Rate 17 06/05/2024 3:00 PM EST Oxygen Saturation 99% 06/19/2024 10:34 AM EST Inhaled Oxygen Concentration - - Weight 103 kg (226 lb) 07/11/2024 10:09 AM EST Height 160 cm (5' 3 ) 07/11/2024 9:37 AM EST Body Mass Index 40.03 07/11/2024 9:37 AM EST Plan of Treatment Upcoming Encounters Date Type Department Care Team (Late st Contact Info) Description 07/16/2024 1:30 PM EST Office Visit Internal Medicine - [address] [phone] Ariadna Weaver, WANDY [address] [place] [phone] 08/08/2024 11:30 AM EDT Routine Obstetrics and Gynecology - [address] [phone] Maria G Bain, [address] [address] 08/13/2024 10:00 AM EDT Ancillary Procedure Maternal Medicine - [address] [phone] 09/05/2024 1:15 PM EDT Routine Obstetrics and [facility] - [facility] [phone] Soco Mayberry, [address] [address] 10/03/2024 1:15 PM EDT Routine Obstetrics and Gynecology - [facility] [phone] JefeSoco, CN [address] [place] [address] Health Maintenance Due Date Last Done Comments Hepatitis B Vaccines (1 of 3 - 19+ 3-dose series) 07/29/2007 Cervical Cancer Screening: P ap Smear 09/05/2020 09/05/2017, 09/05/2017, 09/05/2017 Social Influencers of Health Screening 05/06/2022 COVID-19 Vaccine (1 - 2023-2 5 season) 2024 Influenza Vaccine (#1) 2024 Depression Screening 10/03/2024 10/04/2023 Cholesterol Screening (Lipid Panel) 09/02/2027 09/01/2022 DTaP,Tdap,and Td Vaccines (3 - Td or Tdap) 02/27/2028 02/26/2018, 02/12/2014 HIV Screening Completed 06/06/2024, 08/30/2017 Hepatitis C Screening Completed 06/06/2024 , 02/12/2014 HIB Vaccines Aged Out No longer eligi ble based on patient's age to complete this topic HPV Vaccines Aged Out No longer eligi ble based on patient's age to complete this topic Hepatitis A Vaccines Aged Out No long er eligible based on patient's age to complete this topic IPV Vaccines Aged Out No longer eligi ble based on patient's age to complete this topic Meningococcal ACWY Vaccine Aged Out N o longer eligible based on patient's age to complete this topic Meningococcal B Vacine Aged Out No lo nger eligible based on patient's age to complete this topic Pneumococcal Vaccine: Pediatrics (0 to 5 Years) and At-Risk Patients (6 to 64 Years) Aged Out No longer eligible b ased on patient's age to complete this topic RSV Immunization Patients Under 20 months Aged Out No longer eligible b ased on patient's age to complete this topic Procedures Procedure Name Priority Date/Time Associated Diagnosis Comments [id number], RSV, FLU A AND B QUALITATIVE RT-PCR, LOCAL REFERENCE LAB Routine 07/11/2024 10:24 AM EST Viral upper respiratory tract infection POC RAPID [id number], MOLECULAR Routine 06/19/2024 1:22 PM EST Upper respiratory tract infection, unspecified type US OB LESS 14 WKS SINGLE OR FIRST GESTATION Routine 06/17/2024 1:29 PM EST Encounter for supervision of other normal , first trimester US OB LESS 14 WKS NUCHAL MEASUREMENT Routine 06/17/2024 1:29 PM EST Encounter for supervision of other normal , first trimester HORIZON 14, EMILY Routine 06/16/2024 10 :50 AM EST CHLAMYDIA TRACHOMATIS AND NEISSERIA GONORRHOEAE PCR Routine 06/12/2024 4:34 PM EST Encounter for supervision of other normal in first trimester PANORAMA TEST Routine 10:52 AM EST VENIPUNCTURE CHARGE Routine 06/06/2024 2 :27 PM EST Encounter for supervision of other normal , first trimester Encounter of female for testing for genetic disease carrier status for procreative management Obesity complicating childbirth GTT GESTATIONAL 1 HOUR Routine 2:27 PM EST Encounter for supervision of other normal , first trimester Obesity complicating childbirth GLUCOSE TOLERANCE TEST, 1H GESTATION Routine 06/06/2024 2:27 PM EST Encounter for supervision of other normal , first trimester Obesity complicating childbirth CBC WITH AUTO DIFFERENTIAL Routine 06/06/2024 2:27 PM EST Encounter for supervision of other normal , first trimester VARICELLA ZOSTER ANTIBODY IGG Routine 06/06/2024 2:27 PM EST Encounter for supervision of other normal , first trimester HEPATITIS B SURFACE ANTIGEN WITH CONFIRMATION Routine 06/06/2024 2:27 PM EST Encounter for supervision of other normal , first trimester CBC AND DIFFERENTIAL Routine 06/06/2024 2:27 PM EST Encounter for supervision of other normal , first trimester HEPATITIS C ANTIBODY Routine 06/06/2024 2:27 PM EST Encounter for supervision of other normal , first trimester RUBELLA ANTIBODY IGG Routine 06/06/2024 2:27 PM EST Encounter for supervision of other normal , first trimester TREPONEMA PALLIDUM ANTIBODY WITH REFLEX TO RPR AND PARTICLE AGGLUTINATION Routine 06/06/2024 2:27 PM EST Encounter for supervision of other normal , first trimester TYPE AND SCREEN Routine 06/06/2024 2:27 PM EST Encounter for supervision of other normal , first trimester HEMOGLOBIN A1C Routine 06/06/2024 2:27 PM EST Encounter for supervision of other normal , first trimester Obesity complicating childbirth HIV 1, 2 ANTIBODY, P24 ANTIGEN WITH REFLEX TO DIFFERENTIATION Routine 06/06/2024 2:27 PM EST Encounter for supervision of other normal , first trimester DRUG ABUSE SCREEN EXPANDED WITH REFLEX CONFIRMATION, URINE Routine 06/06/2024 1:23 PM EST Encounter for supervision of other normal , first trimester CULTURE URINE Routine 06/06/2024 1:23 PM EST Encounter for supervision of other normal , first trimester US OB LESS 14 WKS SINGLE OR FIRST GESTATION Routine 05/19/2024 2:12 PM EST History of PCOS Unsure of LMP (last menstrual period) as reason for ultrasound scan HCG, QUANTITATIVE Routine 05/12/2024 3:2 7 PM EST History of PCOS with gestation of unknown duration POC , URINE DIAGNOSTIC Routine 04/23/2024 4:24 PM EST Encounter for supervision of other normal in first trimester HM DEPRESSION SCREENING Routine 10/04/2023 LIPID PANEL Routine 09/01/2022 PAP SMEAR Routine 09/05/2017 from Last 3 Months or Most Recently Relevant to Health Maintenance Results * (ABNORMAL) [id number], RSV, Influenza A and B qualitative RT-PCR (07/11/2024 10:24 AM EST) [facility] SARS COV-2 Not Detected Not Detected LAB MOLECULAR DIAGNOSTICS METHOD 07/11/2024 10:17 PM EST [facility] Influenza A PCR Not Detected Not Detected LAB MOLECULAR DIAGNOSTICS METHOD 07/11/2024 10:17 PM EST [facility] Influenza B PCR Detected(A) Not Detected LAB MOLECULAR DIAGNOSTICS METHOD 07/11/2024 10:17 PM EST [facility] RSV PCR Not Detected Not Detected LAB MOLECULAR DIAGNOSTICS METHOD 07/11/2024 10:17 PM EST [facility] Swab Nasopharyngeal structure / Unknown Non-blood Collection / Unknown 07/11/2024 10:24 AM EST 07/11/2024 10:25 AM EST Ariadna De Oliveira NP LAB MICROBIOLOGY - GENERAL O RDERABLES Final Result [facility] [address] [place] [address], * Poc Rapid [id number], MOLECULAR (06/19/2024 1:22 PM EST) [facility] COVID-19/SARS- COV-2 Rapid POC Negative Negative Internal Control Pass Yes Yes Swab Nasopharyngeal structure / Unknown 06/19/2024 1:22 PM EST us Rosaline Collado NP POINT OF CARE TEST ENTER/EDIT ORDERABLES Final Result * US OB Less 14 Wks Nuchal Measurement (06/17/2024 1:29 PM EST) Anatomical Region Laterality Modality Body Ultrasound 06/17/2024 1:03 PM EST Narrative 06/18/2024 4:38 PM EST OBSTETRICS REPORT ?(Signed Final 06/18/2024 04:38 pm) PATIENT INFO: ID #: ? [id number] ? : ??[birth year] (33 yrs)(F) Name: ? KELLIE STEWART ?Visit Date: 06/17/2024 01:03 pm PERFORMED BY: Attending: ?Clara Shelton MD Performed By: ? Parag Muñoz RDMS Referred By: ?Soco Mayberry CNM Ref. Address: ? [address] ? [place] Location: ? [facility] SERVICE(S) PROVIDED: US Nuchal Translucency ?18519 US < 14 weeks Abdominal Ultrasound ?59744 INDICATIONS: Advanced Maternal Age in multigravida, first [...] 06/18/2024 04:38 pm) PATIENT INFO: ID #: [id number] : [birth year] (33 yrs)(F) Name: KELLIE STEWART Visit Date: 06/17/2024 01:03 pm PERFORMED BY: Attending: Clara Shelton MD Performed By: Parag Muñoz RDMS Referred By: Soco Mayberry CNM Ref. Address: [address] [place] [address] Location: [facility] SERVICE(S) PROVIDED: US Nuchal Translucency 69606 US < 14 weeks Abdominal Ultrasound 51552 INDICATIONS: Advanced Maternal Age in multigravida, first [...] Final Report 06/18/2024 04:38 pm us Soco PUGA IMG OB US PROCEDURES Final R esult * US OB Less 14 Wks Single or First Gestation (06/17/2024 1:29 PM EST) Only the most recent of2 resultswithin the time period is included. Anatomical Region Laterality Modality Body Ultrasound 06/17/2024 1:03 PM EST Narrative 06/18/2024 4:38 PM EST OBSTETRICS REPORT ?(Signed Final 06/18/2024 04:38 pm) PATIENT INFO: ID #: ? [id number] ? : ??[birth year] (33 yrs)(F) Name: ? KELLIE STEWART ?Visit Date: 06/17/2024 01:03 pm PERFORMED BY: Attending: ?Clara Shelton MD Performed By: ? Parag Muñoz RDMS Referred By: ?Soco Mayberry CNM Ref. Address: ? [address] ? [place], [place] Location: ? [facility] SERVICE(S) PROVIDED: US Nuchal Translucency ?84042 US < 14 weeks Abdominal Ultrasound ?67654 INDICATIONS: Advanced Maternal Age in multigravida, first [...] 06/18/2024 04:38 pm) PATIENT INFO: ID #: [id number] : [birth year] (33 yrs)(F) Name: KELLIE STEWART Visit Date: 06/17/2024 01:03 pm PERFORMED BY: Attending: Clara Shelton MD Performed By: Parag Muñoz RDMS Referred By: Soco PUGA Ref. Address: [address] [place] [address] Location: [facility] SERVICE(S) PROVIDED: US Nuchal Translucency 82359 US < 14 weeks Abdominal Ultrasound 07788 INDICATIONS: Advanced Maternal Age in multigravida, first [...] Electronically Signed Final Report 06/18/2024 04:38 pm Soco Mayberry CNM IMG OB US PROCEDURES Final R esult * Horizon 14 (06/16/2024 10:50 AM EST) Blood Venous blood specimen / Unknown Maria G Bain CNM LAB BLOOD ORDERABLES Final Result * Chlamydia trachomatis and Neisseria gonorrhoeae molecular study (06/12/2024 4:34 PM EST) [facility] Neisseria gonorrhoeae PCR Negative Negative LAB MOLECULAR DIAGNOSTICS METHOD 06/13/2024 8:31 AM EST [facility] Chlamydia trachomatis PCR Negative Negative LAB MOLECULAR DIAGNOSTICS METHOD 06/13/2024 8:31 AM EST [facility] Swab Vaginal structure / Unknown Non-blood Collection / Unknown 06/12/2024 4:34 PM EST 06/12/2024 4:34 PM EST Soco Mayberry CNM LAB MICROBIOLOGY - GENERAL O RDERABLES Final Result [facility] [address] [place] [address], [place] [phone] * Panorama test (06/12/2024 10:52 AM EST) Blood Venous blood specimen / Unknown Maria G PUGA LAB BLOOD ORDERABLES Final Result * Hepatitis C antibody (06/06/2024 2:27 PM EST) [facility] Hepatitis C Antibody Negative Negative LAB CHEMISTRY METHOD 06/06/2024 7:34 PM EST [facility] Blood Venous blood specimen / Unknown Venipuncture / Unknown 06/06/2024 2:27 PM EST 06/06/2024 2:27 PM EST Soco PUGA LAB BLOOD ORDERABLES Final R esult [facility] [address] [place] [address], [place] [phone] * HIV 1,2 antibody, p24 antigen with reflex to differentiation (06/06/2024 2:27 PM EST) [facility] HIV Combo AB/AG Negative Negative LAB CHEMISTRY METHOD 06/06/2024 7:35 PM EST [facility] Blood Venous blood specimen / Unknown Venipuncture / Unknown 06/06/2024 2:27 PM EST 06/06/2024 2:27 PM EST Narrative [facility] - 06/06/2024 7:35 PM EST This assay is a 4th generation assay allowing for earlier detection of HIV infection by detecting the presence of the HIV-1 p24 antigen as well as the traditional antibodies to HIV type 1 (including group O) and type 2. ??Use of a 4th generation assay is the current CDC recommendation for HIV screening. Soco Mayberry [facility] LAB BLOOD ORDERABLES Final R esult Performing Organization Address [facility] de Phone Number [facility] [address] [place] [address], [place] [phone] * Hepatitis B surface antigen with reflex to confirmation (06/06/2024 2:27 PM EST) Pathologist [facility] Hepatitis B Surface Ag Negative Negative LAB CHEMISTRY METHOD 06/06/2024 7:06 PM EST [facility] Blood Venous blood specimen / Unknown Venipuncture / Unknown 06/06/2024 2:27 PM EST 06/06/2024 2:27 PM EST Narrative [facility] - 06/06/2024 7:06 PM EST Over the counter supplements containing high doses of biotin may interfere with this assay. ??If interference is suspected, patients shoud be retested after refraining from biotin supplements for 72 hours. Soco Mayberry [facility] LAB BLOOD ORDERABLES Final R esult Performing Organization Address [facility]/ZIP Co de Phone Number [facility] [address] [place] [address], [place] [phone] * Treponema pallidum antibody with reflex to RPR and particle agglutination (06/06/2024 2:27 PM EST) Pathologist [facility] T. Pallidum Antibodies Negative Negative LAB CHEMISTRY METHOD 06/06/2024 7:09 PM EST [facility] Blood Venous blood specimen / Unknown Venipuncture / Unknown 06/06/2024 2:27 PM EST 06/06/2024 2:27 PM EST Soco PUGA LAB BLOOD ORDERABLES Final R esult [facility] [address] [place] [address], [place] [phone] * Venipuncture charge (06/06/2024 2:27 PM EST) [facility] Extra Tube Hold for add-ons. 06/06/2024 4:02 PM EST [facility] Comment:Auto resulted. Blood Venous blood specimen / Unknown Venipuncture / Unknown 06/06/2024 2:27 PM EST 06/06/2024 2:27 PM EST Soco PUGA LAB BLOOD ORDERABLES Final R esult [facility] [address] [place] [address], [place] [phone] * GTT gestational 1 hour (06/06/2024 2:27 PM EST) [facility] Glucose, 1 HR Gestational 135 See Comment mg/dL LAB CHEMISTRY METHOD 06/06/2024 3:54 PM EST [facility] Blood Venous blood specimen / Unknown Venipuncture / Unknown 06/06/2024 2:27 PM EST 06/06/2024 2:27 PM EST Narrative [facility] - 06/06/2024 3:54 PM EST Gestational Diabetes Challenge Reference Range: 1 hour Glucose <140 mg/dL Soco Mayberry [facility] LAB BLOOD ORDERABLES Final R esult [facility] [address] [place] [address], * (ABNORMAL) CBC auto differential (06/06/2024 2:27 PM EST) WBC 7.2 4.8 - 10.8 K/mcL LAB HEMETOLOGY METHOD 06/06/2024 3:39 PM [facility] RBC 4.80 3.80 - 4.80 M/mcL LAB HEMETOLOGY METHOD 06/06/2024 3:39 PM [facility] Hemoglobin 10.6(L) 11.5 - 16.0 g/dL LAB HEMETOLOGY METHOD 06/06/2024 3:39 PM [facility] Hematocrit 35.7 35.0 - 47.0 % LAB HEMETOLOGY METHOD 06/06/2024 3:39 PM [facility] MCV 75.0(L) 79.0 - 98.0 FL LAB HEMETOLOGY METHOD 06/06/2024 3:39 PM [facility] MCH 22.3(L) 27.0 - 32.0 pcg LAB HEMETOLOGY METHOD 06/06/2024 3:39 PM [facility] MCHC 29.7(L) 32.0 - 37.0 g/dL LAB HEMETOLOGY METHOD 06/06/2024 3:39 PM [facility] RDW 19.6(H) 11.0 - 15.0 % LAB HEMETOLOGY METHOD 06/06/2024 3:39 PM [facility] Platelets 339 130 - 400 K/mcL LAB HEMETOLOGY METHOD 06/06/2024 3:39 PM [facility] MPV 10.8 7.0 - 11.0 FL LAB HEMETOLOGY METHOD 06/06/2024 3:39 PM [facility] NRBC 0.0 <1.0 % LAB HEMETOLOGY METHOD 06/06/2024 3:39 PM [facility] NRBC Absolute 0.00 <0.10 K/mcL LAB HEMETOLOGY METHOD 06/06/2024 3:39 PM [facility] Neutrophils Relative 65.6 % LAB HEMETOLOGY METHOD 06/06/2024 3:39 PM [facility] Lymphocytes Relative 27.1 % LAB HEMETOLOGY METHOD 06/06/2024 3:39 PM [facility] Monocytes Relative 5.7 % LAB HEMETOLOGY METHOD 06/06/2024 3:39 PM [facility] Eosinophils Relative 0.7 % LAB HEMETOLOGY METHOD 06/06/2024 3:39 PM [facility] Basophils Relative 0.3 % LAB HEMETOLOGY METHOD 06/06/2024 3:39 PM [facility] Immature Granulocytes Relative 0.6 % LAB HEMETOLOGY METHOD 06/06/2024 3:39 PM [facility] Neutrophils Absolute 4.69 1.50 - 7.00 K/mcL LAB HEMETOLOGY METHOD 06/06/2024 3:39 PM [facility] Lymphocytes Absolute 1.94 1.00 - 5.00 K/mcL LAB HEMETOLOGY METHOD 06/06/2024 3:39 PM [facility] Monocytes Absolute 0.41 0.20 - 1.00 K/mcL LAB HEMETOLOGY METHOD 06/06/2024 3:39 PM [facility] Eosinophils Absolute 0.05 0.00 - 0.50 K/mcL LAB HEMETOLOGY METHOD 06/06/2024 3:39 PM [facility] Basophils Absolute 0.02 0.00 - 0.20 K/mcL LAB HEMETOLOGY METHOD 06/06/2024 3:39 PM [facility] Immature Granulocytes Absolute 0.04(H) 0.00 - 0.03 K/mcL LAB HEMETOLOGY METHOD 06/06/2024 3:39 PM EST [facility] Blood Venous blood specimen / Unknown Venipuncture / Unknown 06/06/2024 2:27 PM EST 06/06/2024 2:27 PM EST Soco Mayberry [facility] LAB BLOOD ORDERABLES Final R esult Performing Organization Address City/[facility]/ZIP Co de Phone Number [facility] [address] [place] [address], [place] [phone] * Rubella antibody IgG (06/06/2024 2:27 PM EST) Rubella IgG Quant 21.7 >=10.0 I Unit/mL LAB CHEMISTRY METHOD 06/06/2024 7:05 PM EST [facility] Rubella IgG Antibody Interp Positive Positive LAB CHEMISTRY METHOD 06/06/2024 7:05 PM EST [facility] Blood Venous blood specimen / Unknown Venipuncture / Unknown 06/06/2024 2:27 PM EST 06/06/2024 2:27 PM EST Soco Mayberry [facility] LAB BLOOD ORDERABLES Final R esult Performing Organization Address City/[facility]/ZIP Co de Phone Number [facility] [address] [place] [address], [place] [phone] * Type and screen (06/06/2024 2:27 PM EST) ABO Group O 06/06/2024 4:33 PM EST [facility] Rh Type Positive 06/06/2024 4:33 PM EST [facility] Antibody Screen Negative 06/06/2024 4:33 PM EST [facility] Blood Venous blood specimen / Unknown Venipuncture / Unknown 06/06/2024 2:27 PM EST 06/06/2024 2:27 PM EST Soco PUGA LAB BLOOD BANK TEST ORDERABL ES Final Result Performing Organization Address [facility] de Phone Number [facility] [address] [place] [address], * Varicella zoster antibody IgG (06/06/2024 2:27 PM EST) [facility] Varicella IgG Positive Positive LAB CHEMISTRY METHOD 06/07/2024 11:30 AM EST [facility] Varicella Zoster IgG 2.97 >=1.00 S/CO LAB CHEMISTRY METHOD 06/07/2024 11:30 AM EST [facility] Blood Venous blood specimen / Unknown Venipuncture / Unknown 06/06/2024 2:27 PM EST 06/06/2024 2:27 PM EST Narrative [facility] - 06/07/2024 11:30 AM EST Interpretation >= 1.00 S/CO is considered to be consistent with Immunity Soco PUGA LAB BLOOD ORDERABLES Final R esult Performing Organization Address [facility] de Phone Number [facility] [address] [place] [address], * Hemoglobin A1c (06/06/2024 2:27 PM EST) [facility] Hemoglobin A1C 5.7 <6.5 % LAB CHEMISTRY METHOD 06/06/2024 6:44 PM EST [facility] Mean Bld Glu Estim. 117 mg/dL LAB CHEMISTRY METHOD 06/06/2024 6:44 PM EST [facility] Blood Venous blood specimen / Unknown Venipuncture / Unknown 06/06/2024 2:27 PM EST 06/06/2024 2:27 PM EST Soco Mayberry [facility] LAB BLOOD ORDERABLES Final R esult [facility] [address] [place] [address], * Drug abuse screen expanded with reflex confirmation, urine (06/06/2024 1:23 PM EST) Amphetamine Screen, Ur Negative Negative LAB CHEMISTRY METHOD 06/06/2024 4:27 PM EST [facility] Comment:Certain OTC medicati ons containing ephedrine, phenylephrine, pseudoephedrine and phenylpropanolamine can cause false positive results. Barbiturate Screen, Ur Negative Negative LAB CHEMISTRY METHOD 06/06/2024 4:27 PM EST [facility] Benzodiazepine Screen, Ur Negative Negative LAB CHEMISTRY METHOD 06/06/2024 4:27 PM [facility] Cocaine Screen, Ur Negative Negative LAB CHEMISTRY METHOD 06/06/2024 4:27 PM EST [facility] Opiate Screen, Ur Negative Negative LAB CHEMISTRY METHOD 06/06/2024 4:27 PM [facility] Cannabinoid (THC) Screen, Ur Negative Negative LAB CHEMISTRY METHOD 06/06/2024 4:27 PM EST [facility] Comment:Specimens from patie nts taking pantoprazole sodium (Protonix) have been shown to produce false positive results. Fentanyl, Ur Negative Negative LAB CHEMISTRY METHOD 06/06/2024 4:27 PM EST [facility] Oxycodone Screen, Ur Negative Negative LAB CHEMISTRY METHOD 06/06/2024 4:27 PM [facility] Urine Urine specimen obtained by clean catch procedure / Unknown Non-blood Collection / Unknown 06/06/2024 1:23 PM EST 06/06/2024 1:24 PM EST [facility] - 06/06/2024 4:27 PM EST Assay cutoffs: Amphetamines ? 1000 ng/mL Barbiturates ?200 ng/mL Benzodiazepines ?? 200 ng/mL Cocaine ? 300 ng/mL Fentanyl ?1 ng/mL Opiates ? 300 ng/mL Oxycodone ? 100 ng/mL THC ?50 ng/mL Semi-quantitative assay for screening purposes only. Unconfirmed screening result should not be used for non-medical purposes. *POSITIVE RESULTS ARE AUTOMATICALLY SENT FOR ALTERNATE METHOD CONFIRMATION* Soco Mayberry CNM LAB URINE ORDERABLES Final R esult Performing Organization Address [facility] de Phone Number [facility] [address] [place] [address], * Culture urine (06/06/2024 1:23 PM EST) [facility] Culture, Urine 10,000-49,000 CFU/mL Mixed urogenital rolando, no uropathogens present. Suggest repeat specimen if clinically indicated. 06/08/2024 11:22 AM EST [facility] Urine Urine specimen obtained by clean catch procedure / Unknown Non-blood Collection / Unknown 06/06/2024 1:23 PM EST 06/06/2024 1:24 PM EST Soco Mayberry CNM LAB MICROBIOLOGY - GENERAL O RDERABLES Final Result Performing Organization Address [facility] de Phone Number [facility] [address] [place] [address], [place] [phone] * HCG, quantitative (05/12/2024 3:27 PM EST) [facility] hCG Quant 100,394 mIU/mL LAB CHEMISTRY METHOD 05/12/2024 9:03 PM EST [facility] Blood Venous blood specimen / Unknown Venipuncture / Unknown 05/12/2024 3:27 PM EST 05/12/2024 3:27 PM EST Narrative BRENDON BRINK [place] ([facility] [place] [facility]) [facility] - 05/12/2024 9:03 PM EST Quantitative HCG Reference Ranges Time after Conception ? MIU/ML 0.2-1 Week ? 5-50 1-2 ?? Weeks ? 50-500 2-3 ?? Weeks ?100-5,000 3-4 ?? Weeks ?500-10,000 4-5 ?? Weeks ?1,000-50,000 5-6 ?? Weeks ? 10,000-100,000 6-8 ?? Weeks ? 15,000-200,000 2-3 ?? Months ?10,000-100,000 2nd Trimester ?1,000-94,000 3rd Trimester ?2,500-90,000 Non- Females ?1-3 us [place] [place] BLOOD ORDERABLES Final R esult BRENDON BRINK [place] ([facility]) [facility] [address] [place] [address], * (ABNORMAL) POC , urine manually resulted (04/23/2024 4:24 PM EST) HCG, Ur POC Positive(A ) Negative POC hCG Int QC Pass? Yes Yes Urine Urine specimen obtained by clean catch procedure / Unknown 04/23/2024 4:24 PM EST [place] [place] CNM POINT OF CARE TEST ENTER/RACH T ORDERABLES Final Result * Depression Screening (10/04/2023) Depression Screening abstracted Historical Provider MD HEALTH MAINTENANCE Final Result * (ABNORMAL) Lipid panel (09/01/2022) LDL/HDL Ratio 5(A) 0 - 4 Triglycerides 183(A) 0 - 150 mg/dL Cholesterol 196 0 - 200 mg/dL HDL 37(A) >=40 mg/dL LDL Cholesterol 123(A) 0 - 100 mg/dL Blood Venous blood specimen / Unknown Historical Provider MD LAB BLOOD ORDERABLES Sharlene l Result * Pap smear (09/05/2017) 09/05/2017 Narrative HISTORICAL TESTING LAB RESULTING AGENCY - 09/12/2017 10:43 AM EDT [id number] THINPREP PAP, IMAGED: NEGATIVE FOR SQUAMOUS INTRAEPITHELIAL LESION AND MALIGNANCY ??. REACTIVE CELLULAR CHANGES. TRICHOMONAS IS PRESENT. SAVAGE IS PRESENT. ORVILLE STEWARD, CORTNEY(ASCP) (CASE SCREENED 09 07 2017) ANDRES VALENCIA M.D., PATHOLOGIST (CASE ELECTRONICALLY SIGNED 09 10 2017) ADEQUACY: SATISFACTORY. ENDOCERVICAL/TRANSFORMATION ZONE COMPONENT ABSENT. SOURCE: THINPREP PAP HPV IF ASCUS, CERVICAL, IMAGED: CLINICAL INFORMATION: HPV IF DIAGNOSIS OF ASCUS. , Z12.4, Z34.01M LMP 06/07/17 Lashonda Ma DO LAB CYTOLOGY ORDERABLES Final Result HISTORICAL TESTING LAB RESULTING AGENCY from Last 3 Months or Most Recently Relevant to Health Maintenance Additional Health Concerns Infection Onset Date Last Indicated Influenza 07/11/2024 07/11/[address] [place] [address] [id number] PLAN Care Teams Cryptologist Relationship Specialty Start Date End Date Raciel Lainez MD [address] [place] [id number] PCP - General Internal Medicine 04/22/24
== END 2024-07-15 10:08 | disposition home or self-care (01) ==
PROVIDERS: PCP Internal Medicine; Visit Provider Psychiatry & Neurology Neurology
DX: G40.009 Localization-related (focal) (partial) idiopathic epilepsy and epileptic syndromes with seizures of localized onset, not intractable, without status epilepticus (principal); G47.10 Hypersomnia, unspecified; R06.83 Snoring
CPT/HCPCS: 99204; G2211

== ENCOUNTER → 2024-07-15 09:17 | Outpatient (BNVA) | payer OTHER, SELFPAY | PROVIDERS: PCP Internal Medicine; Visit Provider Psychiatry & Neurology Neurology | DX: G40.009 Localization-related (focal) (partial) idiopathic epilepsy and epileptic syndromes with seizures of localized onset, not intractable, without status epilepticus (principal); G47.10 Hypersomnia, unspecified; R06.83 Snoring | CPT/HCPCS: 99202 ==

== ENCOUNTER 2025-01-14 09:39 | Outpatient (AMB) | payer OTHER, SELFPAY ==
--- OUTSIDE RECORDS SUMMARY | 2025-01-09 23:59 | XMS_ITS | Continuity of Care Document ---
Author Organization [facility] Address [address] [place] [address]- Care Team Providers Care Environmental Health Nurse Name Role Phone Lisa LAU, Carolina Rios Primary Care Physician Kierra vailable Encounter [facility] Date(s): 12/10/24 - 01/09/25 [facility] [address] [place], [place] [address] Encounter Type: Triage Allergies, Adverse Reactions, Alerts No Known Medication Allergies Substance Criticality Severity Reaction Reaction Severity Status Animal Dander Active Other Environmental Allergy 1 Active Shellfish Active 1Methylisothiazolinone Immunizations Given and Recorded Vaccine Date Status Refusal Reason tetanus/diphtheria/pertussis, acel(Tdap) 09/26/24 Recorded Medications acetaminophen 325 mg oral tablet 650 mg, By Mouth, Every 4 hours, (1-3), may give 325mg per patient preference and re-dose with 325mg within 4 hours if needed. Patient should only receive a total of 650mg of Acetaminophen every 4 hours., # 50 tablet, Refills 0, Tot. Refills 0, Maintenance, 12/22/24 4:04:00 PM EDT, Route to PharmacyElectronically, [facility], Partial fill upon patient request if the prescription is for a schedule II opioid drug., 160, cm, 12/22/24 7:50:00 EDT, Height, 110.4, kg, 12/17/24 21:37:00 EDT, Dry Weight Start Date: 12/22/24 Status: Ordered Quantity: 50.0 Unit: tablet Repeat number: 1 ferrous sulfate 324 mg (65 mg elemental iron) oral delayed release tablet 1 tablet = 324 mg, By Mouth, Daily, # 90 tablet, 3 Refills, Maintenance, 12/21/24 2:44:00 AM EDT, [facility], [facility]/pharmacy #[id number], Partial fill upon patient request if the prescription is for a scheduleII opioid drug., 160, cm, 12/21/24 0:18:00 EDT, Height, 110.4, kg, 12/17/24 21:37:00 EDT, Dry Weight Start Date: 12/21/24 Status: Ordered Quantity: 90.0 Unit: tablet Repeat number: 4 ibuprofen 800 mg oral tablet 800 mg, By Mouth, Every 8 hours, (4-6), may give 400mg per patient preference and re-dose with 400mg within 8 hours if needed. Patient should only receive a total of 800mg of Ibuprofen every 8 hours., # 30 tablet, Refills 0, Tot. Refills 0, Maintenance, 12/22/24 4:04:00 PM EDT, Route to Pharmacy Electronically, [facility], Partial fill upon patient request if the prescription is for a schedule II opioid drug., 160, cm, 12/22/24 7:50:00 EDT, Height, 110.4, kg, 12/17/24 21:37:00 EDT,Dry Weight Start Date: 12/22/24 Status: Ordered Quantity: 30.0 Unit: tablet Repeat number: 1 Problem List Condition Confirmation Course Effective Dates Status Health St atus Informant Anemia of mother in , antepartum Confirmed 06/06/24 Active BMI 40.0-44.9, adult Confirmed 02/2024 Active History of section Confirmed Active History of epilepsy Confirmed 1994 Active Anxiety and depression Confirmed Active AMA (advanced maternal age) multigravida 35+ Confirmed Active Social History Social History Type Response Smoking Status Never (less than 100 in lifetime) entered on: 10/24/24 Sex Sex Representation Female (finding) Patient Care team information Care Team Related Persons Name: FAUZIA STEWART Name: KELLEN DUDLEY Name: LULY PT, NO ONE Insurance Providers Guarantor name: KELLIE STEWART Health Plan Information #: 1 Payer: [employer] Payer Identifier: NA Member Number: [id number] Group Number: [id number] Subscriber Identifier: [id number] Relationship to Subscriber: self Coverage Type: NA Coverage Verification Date: NA Telecom: NA Address: NA
--- OUTSIDE RECORDS SUMMARY | 2025-01-11 23:59 | XMS_ITS | Continuity of Care Document ---
Author Organization [facility] Address [address], [address] [address]- Care Team Providers Care Supervisor [place] Name Role Phone Lisa LAU, Carolina Rios Primary Care Physician Kierra vailable Encounter [facility] Date(s): 12/12/24 - 01/11/25 [facility] [address], [address] [place], [place] [address] Encounter Type: Triage Allergies, Adverse Reactions, Alerts [...] 12/22/24 4:04:00 PM EDT, Route to PharmacyElectronically, [facility], Partial fill upon patient [...] Refills, Maintenance, 12/21/24 2:44:00 AM EDT, [facility], [facility]/pharmacy #[id number], Partial fill upon patient request if [...] 4:04:00 PM EDT, Route to Pharmacy Electronically, [facility], Partial fill upon patient [...] Name: FAUZIA STEWART Name: KELLEN DUDLEY Name: PER PT, NO ONE Insurance Providers Guarantor name: [facility] Information #: 1 Payer: [employer] Payer Identifier: NA Member Number: [id number] Group Number: [id number] Subscriber Identifier: [id number] Relationship to Subscriber: self Coverage Type: NA Coverage Verification Date: NA Telecom: CARRIE Address: NA
--- OUTSIDE RECORDS SUMMARY | 2025-01-11 23:59 | XMS_ITS | Continuity of Care Document ---
Author Organization [facility] Address [address] [place] [address]- Care Team Providers Care Group Activities Aide Name Role Phone Lisa LAU, Carolina Rios Primary Care Physician Kierra vailable [place] [facility] [place] 12/12/24 - 01/11/[address] [address]- Encounter Type: Triage Allergies, Adverse Reactions, Alerts [...] 12/22/24 4:04:00 PM EDT, Route to PharmacyElectronically, [facility], Partial fill upon patient [...] Refills, Maintenance, 12/21/24 2:44:00 AM EDT, [facility], [facility]/pharmacy #[id number], Partial fill upon patient request if [...] 4:04:00 PM EDT, Route to Pharmacy Electronically, [facility], Partial fill upon patient [...] PT, NO ONE Insurance Providers Guarantor name: [facility] Information #: 1 Payer: [employer] Payer Identifier: NA Member Number: [id number] Group Number: [id number] Subscriber Identifier: [id number] Relationship to Subscriber: self Coverage Type: NA Coverage Verification Date: NA Telecom: NA Address: NA
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
[2025-01-14 09:43] VITALS: BP 110/72; PULSE 91; O2SAT 98; BMI 38.7
--- OUTSIDE RECORDS SUMMARY | 2025-01-14 10:29 | XMS_ITS | Clinical Summary ---
Author Organization [address] [facility] Building Address [address] [place] [phone] Phone Care Team Providers Care Supercharger Mechanic Name Role Phone Raciel Lainez MD Primary Care Provider [phone] Allergies Active Allergy Reactions Criticality Noted Date Comments Animal Dander Wheezing,Burning Eyes High 06/05/2024 Cat, Dog, hampster Other Hives High 08/07/2017 Methylisohiazolinone (ROBERT) Shellfish Derived Hives High 09/27/2012 Medications vit,gian [id number]-umvem 27 mg iron- 1 mg tabletIndication s:Encounter for supervision of other normal in first trimester Take 1 tablet by mouth 1 (one) time each day. 30 each 12 5 Active escitalopram (LEXAPRO) 20 mg tabletIndication s:Adjustment disorder with mixed anxiety and depressed mood Take 1 tablet (20 mg total) by mouth 1 (one) time each day. 90 each 3 5 08/14/19 26 Active cetirizine (ZyrTEC) 10 mg tabletIndication s:Environmental and seasonal allergies Take 1 tablet (10 mg total) by mouth 1 (one) time each day. 30 each 2 5 Active fluticasone (VERAMYST) 27.5 mcg/actuation nasal sprayIndications :Environmental and seasonal allergies Administer 2 sprays into each nostril 1 (one) time each day. 10 g 5 03/24/08/19/19 26 Active ferrous gluconate (FERGON) 324 mg (38 mg iron) tablet Take 1 tablet (324 mg total) by mouth 1 (one) time each day. 30 each 11 5 09/18/19 26 Active Active Problems Problem Noted Date Diagnosed Date Anemia during in second trimester 06/2024 Chronic ear pain, bilateral 07/11/2024 Overview (08/08/2024): ENT and audiology referral in place Environmental and seasonal allergies 06/20/2024 Prediabetes 06/20/2024 Iron deficiency anemia diane acosta to inadequate [...] mixed anxiety and depre ssed mood 03/19/2017 Overview (09/22/2024): 09/22/24 - Crisis contacted due to patient wanting maternity leave at 27 weeks and reports harm if unable to provide leave. See [employer] messages and TE. Advised evaluation in the office but d/t transportation issues unable to. Advised eval in ER if SH or harming the fetus. Taking Lexapro daily, seeing therapist every other week. History of epilepsy Overview (04/23/2024): DX:History of epilepsy; COMMENT: no med Resolved Problems Problem Noted Date Diagnosed Date Resolved Date Viral upper respiratory tract infection 07/11/2024 08/18/2024 Encounter for supervision of other normal , third trimester 06/05/2024 10/29/2024 Overview (10/15/2024): 1. [facility] site: [facility]yn: [address] [place] [id number] ([phone]) 2. Delivery site: [facility] 3. Mobile Mommas: No 4. Dating criteria: LMP 5. Blood type: O+ 6. Genetic screening: Date: Result: Panorama: low risk, XY Horizon: Negative x 14 Nuchal: normal NT Survey: normal survey - f/u ultrasound at 32 weeks for follow-up assessment of growth due to BMI >40. MSAFP: neg 6. GBS: Date: 7. FOB name: Andres 8. Plans A. Epidural or other pain management -Spinal Repeat C/section B. Labor support identified - Andres C. Tdap - Date: 09/26/2024 Flu - Date: D. Breast or Bottle feed: E. Baby's name - F. Circumcision - yes, if male 9. Hospital Course: Family history of brain aneurysm 08/18/2024 Overview (04/23/2024): DX:Family history of brain aneurysm; COMMENT: Mom age 51; ct negative Encounters Date Type Department Care Team Description 11/10/2024 Telephone Internal Medicine - [address] [phone] Raciel Lainez MD Forms/questionnaire s (PMFL) 11/03/2024 12:24 PM EDT - 11/03/2024 11:59 PM EDT Hospital Encounter [address] [phone] Anemia during in second trimester (Primary Dx) Discharge Disposition: Home or Self Care 10/27/2024 1:15 PM EDT - 10/27/2024 11:59 PM EDT Hospital Encounter [address] [phone] Santy Catalan MD Anemia during in second trimester (Primary Dx) Discharge Disposition: Home or Self Care 10/24/2024 11:00 AM EDT Ancillary Procedure Maternal Medicine - [address] [phone] AMA (advanced maternal age) multigravida 35+, second trimester 10/15/2024 Telephone Obstetrics and Gynecology - [address] [place] [phone] Iliana Melgar spring former machine of care (Pt self transferring care to [facility]) from Last 3 Months Immunizations Name Administration Dates Next Due Tdap Tetanus diptheria acell ular pertussis (Boostrix; Adacel) 7yo and older 09/26/2024,02/26/2018,02/12/2014 Surgical History Surgery Date Site/Laterality Comments OTHER [...] stroke Depression Mother Diabetes Mother brain aneurysm ([facility]), HTN, depression Hypertension Mother Other: Hysterectomy Mother [...] drink = 0.6 oz pur e alcohol) Comments No Sex and Gender Information Value Date Recorded [...] Labor Labor/2nd/3rd Weight Sex Type Anes PTL Rosemary A1 A5 Name Clin 2012 Term 41w 2d 3815 g (134.6 oz) F CS-LT ranv Spinal Livin g 8 9 Kasey in [place] Al Grider MD Complications:Non-reassuring electronic monitoring tracing Delivery [facility] Comments:thick mec, jose dy cord 8 Term 41w 1d 4082 g (144 oz) M CS-LT ranv Delivery Location:[place] Last Filed Vital Signs Vital Sign Reading Time Taken Comments Blood Pressure 120/71 11/03/2024 12:30 PM EDT Pulse 110 11/03/2024 12:30 PM EDT Temperature 36.3 C (97.4 F) 11/03/2024 12:30 PM EDT Respiratory Rate 18 11/03/2024 12:30 PM EDT Oxygen Saturation 100% 11/03/2024 12:30 PM EDT Inhaled Oxygen Concentration - - Weight 106 kg (234 lb) 09/26/2024 1:31 PM EDT Height 157.5 cm (5' 2 ) 09/26/2024 8:23 AM EDT Body Mass Index 42.8 09/26/2024 8:23 AM EDT Plan of Treatment Upcoming Encounters Date Type Department Care Team (Late st Contact Info) Description 02/12/2025 2:30 PM EDT Telemedicine Internal Medicine - [address] [phone] Ariadna Weaver NP [address] [place] [address] Health Maintenance Due Date Last Done Comments Hepatitis B Vaccines (1 of 3 - 19+ 3-dose series) 07/29/2007 Cervical Cancer Screening: P ap Smear 09/05/2020 09/05/2017, 09/05/2017, 09/05/2017 Social Influencers of Health Screening 05/06/2022 COVID-19 Vaccine (1 - 2023-2 5 season) 2024 Depression Screening 05/28/2024 10/04/2023 Influenza Vaccine (#1) 2025 Cholesterol Screening (Lipid Panel) 09/02/2027 09/01/2022 DTaP,Tdap,and Td Vaccines (4 - Td or Tdap) 09/26/2034 09/26/2024, 02/26/2018, 02/12/2014 HIV Screening Completed 06/06/2024, 08/30/2017 [...] on patient's age to complete this topic MMR Vaccines Aged Out No longer eligi ble based on patient's age to complete this topic Meningococcal ACWY Vaccine Aged Out N o longer eligible based on patient's age to complete this topic Meningococcal B Vaccine Aged Out No l onger eligible based on patient's age to complete this topic Pneumococcal Vaccine: Pediatrics (0 to 5 Years) and At-Risk Patients (6 to 49 Years) Aged Out No longer eligible b ased on patient's age to complete this topic RSV Immunization Patients Under 20 months Aged Out No longer eligible b ased on patient's age to complete this topic Varicella Vaccines Aged Out No longer eligible based on patient's age to complete this topic Procedures Procedure Name Priority Date/Time Associated Diagnosis Comments US OB FOLLOWUP PER FETUS Routine 10/24/2024 11:51 AM EDT AMA (advanced maternal age) multigravida 35+, second trimester HEPATITIS C ANTIBODY Routine 06/06/2024 2:27 PM EST Encounter for supervision of other normal , first trimester HIV 1, 2 ANTIBODY, P24 ANTIGEN WITH REFLEX TO DIFFERENTIATION Routine 06/06/2024 2:27 PM EST Encounter for supervision of other normal , first trimester HM DEPRESSION SCREENING Routine 10/04/2023 LIPID PANEL Routine 09/01/2022 PAP SMEAR Routine 09/05/2017 from Last 3 Months or Most Recently Relevant to Health Maintenance Results * US OB Followup per Fetus (10/24/2024 11:51 AM EDT) Anatomical Region Laterality Modality Body Ultrasound 10/24/2024 11:1 8 AM EDT Narrative 10/24/2024 11:56 AM EDT OBSTETRICS REPORT (Signed Final 10/24/2024 11:56 am) PATIENT INFO: ID #: [id number] : [birth year] (34 yrs)(F) Name: KELLIE STEWART Visit Date: 10/24/2024 11:18 am PERFORMED BY: Attending: Jordyn Rubio MD Performed By: Parag Muñoz RDMS Referred By: Soco PUGA Ref. Address: [address] [place] [address] Location: [facility] SERVICE(S) PROVIDED: [place] [id number] INDICATIONS: Advanced maternal age in multigravida, third O09.523 trimester Maternal care for excessive growth, O36.63X third trimester Obesity complicating , 3rdtrimester O99.213 Morbid obesity E66.01 31 weeks gestation of Z3A.31 TECHNIQUE/SCAN QUALITY: Technique: Transabdominal Scan Satisfactory Quality: OB HISTORY: : 3 Term: 2 Livin VITAL SIGNS: Weight (lb) Height BMI 234 5'2 42.79 EVALUATION: Number Of Fetuses: 1 Cardiac Activity: Observed Presentation: Cephalic Placenta Location: Anterior Appearance: Grade 2 Relation to CVX: No previa Amniotic Fluid SAMIA FV: Within Normal Limits RUQ(cm) RLQ(cm) LUQ(cm) LLQ(cm) 3.84 4.26 3.74 4.46 SAMIA Sum(cm) %Tile Largest Pocket(cm) 16.3 59 4.46 Comment: A >2 x 2 cm pocket of fluid is noted. BIOMETRY: BPD: 85.8 mm G.Age: 34w 4d 97 % HC: 312.1 mm G.Age: 35w 0d 89 % AC: 319.5 mm G.Age: 35w 6d > 99 % FL: 64.5 mm G.Age: 33w 2d 76 % CI: 75.94 % 70 - 86 FL/HC: 20.7 % 19.1 - 21.3 HC/AC: 0.98 0.96 - 1.17 FL/BPD: 75.2 % 71 - 87 FL/AC: 20.2 % 20 - 24 Est. FW: 2559 gm 5 lb 10 oz > 99 % GESTATIONAL AGE: LMP: 31w 6d Date: 03/15/24 PEEWEE: 12/20/24 U/S Today: 34w 5d PEEWEE: 11/30/24 Best: 31w 6d Det. By: LMP (03/15/24) PEEWEE: 12/20/24 STANDARD ANATOMY: Cranium: Normal appearance Stomach: Normal appearance Kidneys: Normal appearance Bladder: Normal appearance COMMENTS: Ms. Stewart was seen for assessment of for follow-up assessment of growth due to BMI >40. - Her medical history is significant for class III obesity, anxiety and depression, and epilepsy for which she is not taking medication. Her obstetrical history is significant for two term deliveries. - Cell free DNA testing was obtained in this . Results are low-risk for all conditions assessed. - Ultrasound Findings: The estimated weight is 2,559 grams, at the 99th percentile. The amniotic fluid index is 16.30 cm, appropriate for the gestational age. - Plan: She has been scheduled in 4 weeks for large EFW. - Weekly NSTs are recommended starting at 34 weeks due to BMI > 40. - Repeat screening for gestational diabetes is recommended due to large EFW. - Jordyn Rubio MD Electronically Signed Final Report 10/24/2024 11:56 am Procedure Note Jordyn Rubio MD - 10/24/2024 OBSTETRICS REPORT (Signed Final 10/24/2024 11:56 am) PATIENT INFO: ID #: [id number] : [birth year] (34 yrs)(F) Name: KELLIE STEWART Visit Date: 10/24/2024 11:18 am PERFORMED BY: Attending: Jordyn Rubio MD Performed By: Parag Muñoz RDIL Referred By: Soco PUGA Ref. Address: [address] [place] [address] Location: [facility]) SERVICE(S) PROVIDED: [place] [id number] INDICATIONS: Advanced maternal age in multigravida, third O09.523 trimester Maternal care for excessive growth, O36.63X third trimester Obesity complicating , 3rdtrimester O99.213 Morbid obesity E66.01 31 weeks gestation of Z3A.31 TECHNIQUE/SCAN QUALITY: Technique: Transabdominal Scan Satisfactory Quality: OB HISTORY: : 3 Term: 2 Livin VITAL SIGNS: Weight (lb) Height BMI 234 5'2 42.79 EVALUATION: Number Of Fetuses: 1 Cardiac Activity: Observed Presentation: Cephalic Placenta Location: Anterior Appearance: Grade 2 Relation to CVX: No previa Amniotic Fluid SAMIA FV: Within Normal Limits RUQ(cm) RLQ(cm) LUQ(cm) LLQ(cm) 3.84 4.26 3.74 4.46 SAMIA Sum(cm) %Tile Largest Pocket(cm) 16.3 59 4.46 Comment: A >2 x 2 cm pocket of fluid is noted. BIOMETRY: BPD: 85.8 mm G.Age: 34w 4d 97 % HC: 312.1 mm G.Age: 35w 0d 89 % AC: 319.5 mm G.Age: 35w 6d > 99 % FL: 64.5 mm G.Age: 33w 2d 76 % CI: 75.94 % 70 - 86 FL/HC: 20.7 % 19.1 - 21.3 HC/AC: 0.98 0.96 - 1.17 FL/BPD: 75.2 % 71 - 87 FL/AC: 20.2 % 20 - 24 Est. FW: 2559 gm 5 lb 10 oz > 99 % GESTATIONAL AGE: LMP: 31w 6d Date: 03/15/24 PEEWEE: 12/20/24 U/S Today: 34w 5d PEEWEE: 11/30/24 Best: 31w 6d Det. By: LMP (03/15/24) PEEWEE: 12/20/24 STANDARD ANATOMY: Cranium: Normal appearance Stomach: Normal appearance Kidneys: Normal appearance Bladder: Normal appearance COMMENTS: Ms. Stewart was seen for assessment of for follow-up assessment of growth due to BMI >40. - Her medical history is significant for class III obesity, anxiety and depression, and epilepsy for which she is not taking medication. Her obstetrical history is significant for two term deliveries. - Cell free DNA testing was obtained in this . Results are low-risk for all conditions assessed. - Ultrasound Findings: The estimated weight is 2,559 grams, at the 99th percentile. The amniotic fluid index is 16.30 cm, appropriate for the gestational age. - Plan: She has been scheduled in 4 weeks for large EFW. - Weekly NSTs are recommended starting at 34 weeks due to BMI > 40. - Repeat screening for gestational diabetes is recommended due to large EFW. - Jordyn Rubio MD Electronically Signed Final Report 10/24/2024 11:56 am us Soco Mayberry CNM IMG OB US PROCEDURES Final R esult * Hepatitis C antibody (06/06/2024 2:27 PM EST) Hepatitis C Antibody Negative Negative LAB CHEMISTRY METHOD 06/06/2024 7:34 PM EST [facility] Blood Venous blood specimen / Unknown Venipuncture / Unknown 06/06/2024 2:27 PM EST 06/06/2024 2:27 PM EST us Soco Mayberry CNM LAB BLOOD ORDERABLES Final R esult [facility] [address] [place] [address], [place] [phone] * HIV 1,2 antibody, p24 antigen with reflex to differentiation (06/06/2024 2:27 PM EST) [facility] HIV Combo AB/AG Negative Negative LAB CHEMISTRY METHOD 06/06/2024 7:35 PM EST [facility] Blood Venous blood specimen / Unknown Venipuncture / Unknown 06/06/2024 2:27 PM EST 06/06/2024 2:27 PM EST Narrative [facility] - 06/06/2024 7:35 PM EST This assay is a 4th generation assay allowing for earlier detection of HIV infection by detecting the presence of the HIV-1 p24 antigen as well as the traditional antibodies to HIV type 1 (including group O) and type 2. Use of a 4th generation assay is the current CDC recommendation for HIV screening. Soco Mayberry CNM LAB BLOOD ORDERABLES Final R esult [facility] [address] [place] [address], [place] [phone] * Depression Screening (10/04/2023) [facility] Depression Screening abstracted Historical Provider HEALTH MAINTENANCE Final Result * (ABNORMAL) Lipid panel (09/01/2022) [facility] LDL/HDL Ratio 5(A) 0 - 4 Triglycerides 183(A) 0 - 150 mg/dL Cholesterol 196 0 - 200 mg/dL HDL 37(A) >=40 mg/dL LDL Cholesterol 123(A) 0 - 100 mg/dL Blood Venous blood specimen / Unknown Historical Provider LAB BLOOD ORDERABLES Sharlene l Result * Pap smear (09/05/2017) 09/05/2017 Narrative HISTORICAL TESTING LAB RESULTING AGENCY - 09/12/2017 10:43 AM EDT [id number] THINPREP PAP, IMAGED: NEGATIVE FOR SQUAMOUS INTRAEPITHELIAL LESION AND MALIGNANCY . REACTIVE CELLULAR CHANGES. TRICHOMONAS IS PRESENT. SAVAGE [...] or Most Recently Relevant to Health Maintenance Insurance [facility] [facility] Care Teams Supercharger Mechanic Relationship Specialty Start Date End Date Raciel Lainez MD [address] [place] [id number] PCP - General Internal Medicine 04/22/24
--- OUTSIDE RECORDS SUMMARY | 2025-01-14 10:29 | XMS_ITS | Clinical Summary ---
Author Organization [facility] Address [address] [place] [phone] Phone Care Team Providers Care Children Counselor Name Role Phone Raciel Lainez MD Primary Care Provider + Allergies No known active allergies Medications No known medications Social History Tobacco Use Types Packs/Day Years Used Date Smoking Tobacco: Never Assessed Education Answer Date Recorded Are you interested in more education? Not on kenan e 09/23/2022 Are you concerned about learning? Not on file 09/23/2022 No 09/23/2022 No 09/23/2022 Digital Access Answer Date Recorded No 10/24/2022 No 10/24/2022 Reliable internet access at home? Not on file 10/24/2022 Device with a working camera? Not on file Comments Unknown Sex and Gender Information Value Date Recorded Sex Assigned at Not on file Legal Sex Female 11:56 AM EST Gender Identity Not on file Sexual Orientation Not on file Last Filed Vital Signs Vital Sign Reading Time Taken Comments Blood Pressure 119/84 04/11/2021 1:26 PM EST Pulse 99 04/11/2021 1:26 PM EST Temperature 36.1 C (97 F) 04/11/2021 1:26 PM EST Respiratory Rate 18 04/11/2021 1:26 PM EST Oxygen Saturation 98% 04/11/2021 1:26 PM EST Inhaled Oxygen Concentration - - Weight 102.1 kg (225 lb) 04/11/2021 1:26 PM EST Height 160 cm (5' 3 ) 04/11/2021 1:26 PM EST Body Mass Index 39.86 04/11/2021 1:26 PM EST Plan of Treatment Health Maintenance Due Date Last Done Comments DEPRESSION SCREENING 2000 SMOKING Hx and SMOKELESS TOBACCO SCREENING 2001 HEPATITIS C SCREENING 2006 HIV ONE-TIME SCREENING (18-6 5 YEARS) 2006 PAP SMEAR 2009 COVID-19 VACCINE (2023-2 5 season) 2024 Adult Td,Tdap Booster 02/27/2028 02/26/2018 , 02/12/2014 HEPATITIS A VACCINES Aged Out No long er eligible based on patient's age to complete this topic HIB VACCINES Aged Out No longer eligi ble based on patient's age to complete this topic MENINGOCOCCAL VACCINES (ACWY) Aged Out No longer eligible based on patient's age to complete this topic MENINGOCOCCAL VACCINES (B) Aged Out N o longer eligible based on patient's age to complete this topic PNEUMOCOCCAL VACCINES (0-49 years) Aged Out No longer eligible b ased on patient's age to complete this topic Medical Devices [place] [address] [employer] [place] [address] [place], [place] [address] [employer] [place] [address] [place] [address] [employer] [place] [address] [place], [place] [address] [address] [place] [address] [place] [address] [place] [address] [employer] * Guarantor: Gaby Horta Account Type Relation to Patient Date of Phone Billing Address Personal/Family Self [address] [place] [address] [facility] Care Teams Children Counselor Relationship Specialty Start Date End Date Raciel Lainez MD [address] [place] [phone] PCP - General Internal Medicine 04/11/21 Additional Source Comments The information contained in this document represents components of the legal health record. It is not the complete legal health record.[facility]
== END 2025-01-14 10:19 | disposition home or self-care (01) ==
LOC: HO.HSMS 09:40
PROVIDERS: PCP Internal Medicine; Visit Provider Psychiatry & Neurology Neurology
DX: G40.009 Localization-related (focal) (partial) idiopathic epilepsy and epileptic syndromes with seizures of localized onset, not intractable, without status epilepticus (principal); G47.10 Hypersomnia, unspecified; R06.83 Snoring
CPT/HCPCS: 99214

== ENCOUNTER → 2025-01-14 09:39 | Outpatient (BNVA) | payer OTHER, SELFPAY | PROVIDERS: PCP Internal Medicine; Visit Provider Psychiatry & Neurology Neurology | DX: G40.009 Localization-related (focal) (partial) idiopathic epilepsy and epileptic syndromes with seizures of localized onset, not intractable, without status epilepticus (principal); R06.83 Snoring; G47.10 Hypersomnia, unspecified | CPT/HCPCS: 99212 ==